=== PATIENT | female | born 1970 | race Caucasian/White ===

== ENCOUNTER 2017-03-12 15:28 | Outpatient (CLI) | payer MEDICARE, OTHER | END 2017-03-12 15:29 | disposition critical access hospital (66) | LOC: EMS 15:28 | PROVIDERS: ATTEND Surgery | DX: R55 Syncope and collapse (principal) | CPT/HCPCS: A0425; A0429 ==

== ENCOUNTER 2017-03-12 16:04 | Inpatient (IN) | payer MEDICARE, OTHER ==
--- NOTE | 2017-03-12 16:45 | ED Physician Documentation ---
History of Present Illness - Stated complaint Stated Complaint: ALOC - Chief complaint Chief Complaint: Neuro - Additonal information Additional information: hx from pt EMS and EMR 46 female s/p gastric bypass with resultant Wernicke encephalopathy and hypokalemia also chronic back pain takes morphine BIBA with CC AMS for several days, possible head injury (judging by bruise on her forehead) pt states she has also had a fever and a cough denies abd pain NVD s/p hyst pt denies recent med changes, denies illicit drug use, denies EtOH MOP arrives and states no morphine is missing and also reports pt was having ataxia and l eye gaze deviation which are typical of her wernickes Review of Systems Constitutional: reports: Fever Ears: denies: Ear pain Throat: denies: Sore throat Cardiac: denies: Chest pain / pressure Respiratory: reports: Cough GI: denies: Abdominal Pain, Nausea, Vomiting, Diarrhea Musculoskeletal: reports: Neck pain, Back pain (chronic) Neurologic: reports: Altered mental status, Headache, Head injury Endocrine: denies: Easy bruising / bleeding Immunocompromised: denies: Immunocompromised PD PAST MEDICAL HISTORY - Past Medical History Cardiovascular: None Respiratory: None Endocrine/Autoimmune: None GI: GERD : None HEENT: None Psych: None Musculoskeletal: Chronic back pain, Other Derm: None - Past Surgical History Past Surgical History: Yes General: Gastric surgery, Splenectomy, Colonoscopy, EGD Ortho: Spine surgery, 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, 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 HEENT: Tonsil/Adenoidectomy - Present Medications Home Medications: Ambulatory Orders Medication Instructions Recorded Confirmed Hydrochlorothiazide 25 mg PO DAILY 12/31/14 03/12/17 Esomeprazole [NexIUM] 40 mg ORAL DAILY 02/08/15 03/12/17 Morphine Sulfate [Ms Contin] 120 mg ORAL BID 02/08/15 03/12/17 Bupropion HCl 100 mg PO BID 12/06/15 03/12/17 Fluoxetine HCl 20 mg PO DAILY 12/06/15 03/12/17 Levocetirizine Dihydrochloride 5 mg PO DAILY 12/06/15 03/12/17 [Xyzal] Estrogens, Conjugated [Premarin] 0.625 mg PO DAILY 04/24/16 03/12/17 Lubiprostone [Amitiza] 8 mcg PO BID 04/24/16 03/12/17 Baclofen 10 mg DAILY PRN 03/12/17 03/12/17 Cholecalciferol (Vitamin D3) 1 tab DAILY 03/12/17 03/12/17 [Vitamin D3] Cyanocobalamin [Vitamin B-12] 1 applic .EVERY 2 WEEKS 03/12/17 03/12/17 Gabapentin 300 mg BID 03/12/17 03/12/17 Loratadine [Claritin] 10 mg DAILY PRN 03/12/17 03/12/17 Menactra 0.5 ml .UNKNOWN 03/12/17 03/12/17 Ondansetron [Zofran Odt] 8 mg TID PRN 03/12/17 03/12/17 Potassium Chloride 10%Liquid 15 ml DAILY 03/12/17 Thiamine [Vitamin B-1] 1 tab DAILY 03/12/17 03/12/17 - Allergies Allergies/Adverse Reactions: Allergies Allergy/AdvReac Type Severity Reaction Status Date / Time doxycycline AdvReac Unknown Verified 03/12/17 16:54 duloxetine HCl * AdvReac Unknown Verified 03/12/17 16:54 [From Cymbalta] pregabalin [From Lyrica] AdvReac Unknown Verified 03/12/17 16:54 Sulfa (Sulfonamide AdvReac Unknown Verified 03/12/17 16:54 Antibiotics) - Social History Does the pt smoke?: Yes Smoking Status: Current every day smoker Does the pt drink ETOH?: No Does the pt have substance abuse?: No - Immunizations Immunizations are current?: Yes - POLST Patient has POLST: No PD ED PE NORMAL - Vitals Vital signs reviewed: Yes (afebrile, desats when falls asleep) - General General: Alert and oriented X 3 - HEENT HEENT: PERRL. No: Atraumatic (linear brusie in middle of forehead) - Neck Neck: Supple, no meningeal sign - Cardiac Cardiac: RRR - Respiratory Respiratory: No respiratory distress, Clear bilaterally - Abdomen Abdomen: Soft, Non tender - Derm Derm: Normal color - Extremities Extremities: No deformity - Neuro Neuro: Other (arousable but groggy, answers questions, says yes to almost everything, moves all ext, PERRL) Results - Vitals Vitals: Vital Signs - 24 hr 03/12/17 03/12/17 03/12/17 16:07 17:32 18:33 Temperature 36.6 C Heart Rate 74 82 84 Respiratory 16 18 12 Rate Blood Pressure 106/75 114/83 H 115/76 O2 Saturation 98 99 100 03/12/17 03/12/17 19:13 19:59 Temperature Heart Rate 73 88 Respiratory 16 12 Rate Blood Pressure 148/93 H 111/75 O2 Saturation 95 99 Oxygen O2 Source Room air - EKG (time done) 1633 Rate: Rate (enter#) Rhythm: NSR [place]: Normal Intervals: Normal [place] Ischemia: Normal ST segments, Q waves (III AVF) - Labs Labs: Laboratory Tests 03/12/17 03/12/17 03/12/17 16:42 16:42 16:42 WBC 9.2 RBC 4.40 Hgb 13.2 Hct 39.8 MCV 90.5 MCH 30.1 MCHC 33.2 RDW 14.1 Plt Count 251 MPV 8.6 Neut # 5.6 Lymph # 2.8 [place] # 0.7 Eos # 0.1 Baso # 0.0 Absolute Nucleated RBC 0.00 Nucleated RBCs 0.0 Sodium 140 Potassium 4.1 Chloride 102 Carbon Dioxide 31 Anion Gap 7.0 BUN 16 Creatinine 0.7 Estimated GFR (MDRD) 89 Glucose 96 Calcium 9.1 Total Bilirubin 0.2 AST 22 ALT 17 Alkaline Phosphatase 83 Total Protein 6.5 L Albumin 3.6 Globulin 2.9 Albumin/Globulin Ratio 1.2 Lipase 16 L TSH 0.50 Urine Color Urine Clarity Urine pH Ur Specific [place] Urine Protein Urine Glucose (UA) Urine Ketones Urine Occult Blood Urine Nitrite Urine Bilirubin Urine Urobilinogen Ur Leukocyte Esterase Ur Microscopic Review Urine Culture Comments Urine HCG, Qual Urine Opiates Screen Ur Oxycodone Screen Urine Methadone Screen Ur Propoxyphene Screen Ur Barbiturates Screen Ur Tricyclics Screen Ur Phencyclidine Scrn Ur Amphetamine Screen U Methamphetamines Scrn U Benzodiazepines Scrn Urine Cocaine Screen U Cannabinoids Screen Ethyl Alcohol < 5.0 03/12/17 03/12/17 17:25 17:25 WBC RBC Hgb Hct MCV MCH MCHC RDW Plt Count MPV Neut # Lymph # [place] # Eos # Baso # Absolute Nucleated RBC Nucleated RBCs Sodium Potassium Chloride Carbon Dioxide Anion Gap BUN Creatinine Estimated GFR (MDRD) Glucose Calcium Total Bilirubin AST ALT Alkaline Phosphatase Total Protein Albumin Globulin Albumin/Globulin Ratio Lipase TSH Urine Color YELLOW Urine Clarity CLEAR Urine pH 6.0 Ur Specific [place] 1.015 Urine Protein NEGATIVE Urine Glucose (UA) NEGATIVE Urine Ketones NEGATIVE Urine Occult Blood NEGATIVE Urine Nitrite NEGATIVE Urine Bilirubin NEGATIVE Urine Urobilinogen 0.2 (NORMAL) Ur Leukocyte Esterase NEGATIVE Ur Microscopic Review NOT INDICATED Urine Culture Comments NOT INDICATED Urine HCG, Qual NEGATIVE Urine Opiates Screen POSITIVE H Ur Oxycodone Screen NEGATIVE Urine Methadone Screen NEGATIVE Ur Propoxyphene Screen NEGATIVE Ur Barbiturates Screen NEGATIVE Ur Tricyclics Screen NEGATIVE Ur Phencyclidine Scrn NEGATIVE Ur Amphetamine Screen NEGATIVE U Methamphetamines Scrn NEGATIVE U Benzodiazepines Scrn POSITIVE H Urine Cocaine Screen NEGATIVE U Cannabinoids Screen NEGATIVE Ethyl Alcohol - Rads (name of study) CTH Radiology: Prelim report reviewed (acute, opacification L maxilalry sinus could be sinusitis) [facility] Radiology: See rad report (no fx or listhesis, prior fusion) PD MEDICAL DECISION MAKING - ED course ED course: CTH neg excedpt sinusits labs normal excep _ opiates (as expected) and benzo (not prescribed, but mother of patient has rx for valium so perhaps pt took that) pt did awken some and moan and speak after 0.4 mg narcan so this could be opiate induced but with preceding sx of ataxia and gaze deviation and known hx wernickes which can be fatal, feel pt should be admitted for IV thiamine (did try and order a thiamine level to help clarify etiology of AMS but that is a send out which will not help) will admit gave IV thiamine, initially 100 mg but per UpToDate 500 mg IV so added another 400 advised hospitalist of possiible sinusitis on CT and pt is asplenic Departure - Departure Disposition: 66 [facility] DC/Xfer Clinical Impression: Encephalopathy
[2017-03-12 16:55] LABS: BASOPHILS % (AUTO) 0.4 %; EOSINOPHILS # (AUTO) 0.1 10^3/uL (0.0-0.7); EOSINOPHILS % (AUTO) 0.7 %; HCT - HEMATOCRIT 39.8 % (37.0-47.0); HGB - HEMOGLOBIN 13.2 g/dL (12.0-16.0); LYMPHOCYTES # (AUTO) 2.8 10^3/uL (1.5-3.5); LYMPHOCYTES % (AUTO) 30.2 %; MEAN CORPUSCULAR HEMOGLOBIN 30.1 pg (27.0-31.0); MEAN CORPUSCULAR HGB CONC 33.2 g/dL (32.0-36.0); MEAN CORPUSCULAR VOLUME 90.5 fL (81.0-99.0); MEAN PLATELET VOLUME 8.6 fL (7.9-10.8); MONOCYTES # (AUTO) 0.7 10^3/uL (0.0-1.0); NEUTROPHILS # (AUTO) 5.6 10^3/uL (1.5-6.6); NEUTROPHILS % (AUTO) 60.7 %; RED CELL DISTRIBUTION WIDTH 14.1 % (12.0-15.0); UNCORRECTED WHITE BLOOD COUNT 9.2 x10^3/uL; WHITE BLOOD COUNT 9.2 x10^3/uL (4.8-10.8)
[2017-03-12 17:12] LABS: ALBUMIN/GLOBULIN RATIO 1.2 (1.0-2.2); BILIRUBIN,TOTAL 0.2 mg/dL (0.2-1.0); BUN - BLOOD UREA NITROGEN 16 mg/dL (6-20); CALCIUM 9.1 mg/dL (8.5-10.3); CARBON DIOXIDE - CO2 31 mmol/L (21-32); CHLORIDE 102 mmol/L (101-111); CREATININE 0.7 mg/dL (0.4-1.0); GFR - MDRD 89 (>89); GLUCOSE 96 mg/dL (70-100); LIPASE 16 U/L (22-51); POTASSIUM 4.1 mmol/L (3.5-5.0); SODIUM 140 mmol/L (135-145); TOTAL PROTEIN 6.5 g/dL (6.7-8.2)
--- NOTE | 2017-03-12 17:30 | XRAY Preliminary Report ---
Exam: XR Chest 1 View IMPRESSION: No focal consolidation. [facility] SITE ID: [id number]
--- NOTE | 2017-03-12 17:33 | XRAY Report ---
EXAM: CHEST RADIOGRAPHY EXAM DATE: 03/12/2017 05:25 PM. CLINICAL HISTORY: Cough AMS. COMPARISON: Chest radiograph dated 12/06/2015. TECHNIQUE: 1 view. FINDINGS: Lungs/Pleura: No focal opacities evident. No pleural effusion. No pneumothorax. Mediastinum: Within exam limitations, cardiomediastinal contour is normal. Other: None. IMPRESSION: No focal consolidation. [facility] Referring Provider Line: [phone] SITE ID: [id number]
[2017-03-12 17:53] LABS: BILIRUBIN,URINE NEGATIVE (NEGATIVE)
[2017-03-12 17:55] LABS: HCG UR QUAL NEGATIVE; UA CHARGE (STRIP ONLY) YES; UR CULTURE IF IND NOT INDICATED
--- NOTE | 2017-03-12 18:00 | CT Preliminary Report ---
Exam: CT Head W/O IMPRESSION: 1. No acute intracranial abnormality. 2. Near complete opacification of the partially visualized left maxillary sinus which can be seen in the setting of acute sinusitis. [facility] SITE ID: [id number]
--- NOTE | 2017-03-12 18:03 | CT Report ---
EXAM: CT HEAD EXAM DATE: 03/12/2017 05:15 PM. CLINICAL HISTORY: HI AMS. COMPARISON: None. TECHNIQUE: Multiaxial CT images were obtained from the foramen magnum to the vertex. IV contrast: Non e. Reformats: Coronal. In accordance with CT protocol optimization, one or more of the following dose reduction techniques w ere utilized for this exam: automated exposure control, adjustment of mA and/or KV based on patient s ize, or use of iterative reconstructive technique. FINDINGS: Parenchyma: No intraparenchymal hemorrhage. No evidence of mass, midline shift, or CT findings of inf arction. Aparicio-white differentiation is distinct. Extraaxial Spaces: Normal for age. No subdural or epidural collections identified. Ventricles: Normal in size and position. Sinuses: Near complete opacification of the partially visualized left maxillary sinus. Bones: No evidence of fracture or calvarial defect. Other: None. IMPRESSION: 1. No acute intracranial abnormality. 2. Near complete opacification of the partially visualized left maxillary sinus which can be seen in the setting of acute sinusitis. [facility] Referring Provider Line: [phone] SITE ID: [id number]
--- NOTE | 2017-03-12 18:06 | CT Preliminary Report ---
Exam: CT Cervical Spine W/O IMPRESSION: 1. No acute fracture or listhesis. 2. Anterior cervical fusion hardware at C4-C7 with no evidence of hardware failure or loosening. The alignment is similar to the prior cervical spine radiograph dated 12/06/2015. 3. Acute sinusitis in the left maxillary sinus. [facility] SITE ID: [id number]
--- NOTE | 2017-03-12 18:09 | CT Report ---
EXAM: CT CERVICAL SPINE WITHOUT CONTRAST DATE: 03/12/2017 05:15 PM HISTORY: Fall HI AM cant clear. COMPARISONS: Cervical spine radiograph dated 12/05/2016. TECHNIQUE: Thin-section axial images were acquired of the cervical spine without contrast. Post-proce ssing: Coronal and sagittal reformats. Other: None. In accordance with CT protocol optimization, one or more of the following dose reduction techniques w ere utilized for this exam: automated exposure control, adjustment of mA and/or KV based on patient s ize, or use of iterative reconstructive technique. FINDINGS: Alignment: Normal. No scoliosis or spondylolisthesis. Bones: No fracture or bone lesion. Interspace Levels/Facets: The patient is again noted be status post prior anterior cervical fusion at C4, C5, C6 and C7 with no evidence of hardware failure or loosening. Anterior displacement of the inferior aspect of the fusio n hardware is similar to the prior examination. There is bony fusion of the intervertebral disk space s. Musculature: Normal. No fatty atrophy. Other: Near complete opacification of the left maxillary sinuses with bubbly secretions and an air-fl uid level. IMPRESSION: 1. No acute fracture or listhesis. 2. Anterior cervical fusion hardware at C4-C7 with no evidence of hardware failure or loosening. The alignment is similar to the prior cervical spine radiograph dated 12/06/2015. 3. Acute sinusitis in the left maxillary sinus. [facility] Referring Provider Line: [phone] SITE ID: [id number]
[2017-03-12] MEDS ORDERED: NALOXONE 0.4 MG/ML VIAL IVP STA (18:35)
[2017-03-12] MEDS ORDERED: THIAMINE INJ 500 MG in SODIUM CHLORIDE 0.9% 50 ML IV STA (18:37)
[2017-03-12] MEDS ORDERED: NALOXONE 0.4 MG/ML VIAL ONE (18:37)
[2017-03-12] MEDS ORDERED: THIAMINE INJ 100 MG in SODIUM CHLORIDE 0.9% 50 ML IV STA (18:39)
[2017-03-12] MEDS ORDERED: ACETAMINOPHEN 1,000 MG/100 ML 100 ML IV STA (19:03)
[2017-03-12] MEDS ORDERED: ACETAMINOPHEN 1,000 MG/100 ML 100 ML IV ONE (19:05)
[2017-03-12] MEDS ORDERED: THIAMINE INJ 400 MG in SODIUM CHLORIDE 0.9% 50 ML IV STA (20:07)
[2017-03-12] MEDS ORDERED: THIAMINE 100 MG/1 ML 2 ML MDV ONE (20:10)
[2017-03-12] MEDS ORDERED: SODIUM CHLORIDE 0.9% 50 ML IV ONE (20:12)
[2017-03-12] MEDS ORDERED: SODIUM CHLORIDE FLUSH 0.9% 10 ML SYRINGE IVP PRN (20:16)
[2017-03-12 21:35] LABS: FOLATE 17.02 ng/mL (5.90 - >24.8)
[2017-03-12] MEDS ORDERED: CYANOCOBALAMIN 1,000 MCG/ML VIAL IM SCH (21:45)
[2017-03-12] MEDS ORDERED: THIAMINE INJ 500 MG in SODIUM CHLORIDE 0.9% 50 ML IV SCH (22:00)
[2017-03-12] MEDS: AMOX/CLAV 875 MG/125 MG TABLET PO SCH (22:18)
[2017-03-12] MEDS: buPROPion SR 100 MG TABLET PO SCH (22:19)
[2017-03-12] MEDS: SODIUM CHLORIDE FLUSH 0.9% 10 ML SYRINGE IVP SCH (22:20)
[2017-03-12] MEDS: SODIUM CHLORIDE 0.9% 1,000 ML IV SCH (22:22)
[2017-03-13] MEDS: BACLOFEN 10 MG TABLET PO PRN (01:00)
[2017-03-13] MEDS: GABAPENTIN 300 MG CAPSULE PO SCH ×2 (01:45→22:06)
[2017-03-13] MEDS ORDERED: THIAMINE INJ 500 MG in SODIUM CHLORIDE 0.9% 50 ML IV SCH (05:00)
[2017-03-13] MEDS: SODIUM CHLORIDE FLUSH 0.9% 10 ML SYRINGE IVP SCH ×3 (06:33→22:06)
--- NOTE | 2017-03-13 06:37 | HISTORY & PHYSICAL EXAMINATION ---
DATE OF ADMISSION: 03/12/2017 PRIMARY CARE PROVIDER: MARCO Aceves, [facility]. CHIEF COMPLAINT: Altered mental status, increased lethargy. HISTORY OF PRESENT ILLNESS: This is a 46-year-old female who has a complicated past medical history i ncluding gastric bypass surgery in 2000, history of spinal cervical and thoracic to lumbar spinal cathy ankur in 2011 done in [place]. She has a history of opiate abuse in the past. Currently living with mother. 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 She notes that over the past several days, she has been feeling a little bit more fatigued. She also felt like she was having significant head congestion, took some [id number] decongestants; does admit to chills but denies any fevers. Mother found her today significantly lethargic, difficult to a rouse while in a car. She actually hit her head on the side of the door and was brought into the [facility] room for further evaluation. Chest x-ray revealed no focal or acute abnormalities. CT of head revealed no acute intracranial abnor mality but near complete opacification of the partially visualized left maxillary sinus, which sugges ts acute sinusitis. White count was noted to be 9.2 with 5.6 polys. Urine revealed no acute abnormali ties. Urine tox screen was positive for opiates and benzodiazepines by history. The patient reportedl y is not on any benzodiazepines. Alcohol level is less than 5.0. Urine hCG is negative. TSH is normal at 0.50. Vitamin B12 is 578. Patient's mother notes that patient had similar presentation when she was getting Wernicke's secondar y to thiamine malabsorption, which was at least several years ago. Patient did respond to Narcan and is more awake currently. 1. Traumatic accident, age 13, leading to chronic pain of neck and back. 2. History of 2003 gastric bypass surgery done at [facility]. 3. History 2011 of spinal surgery done in [place]. 4. History of Wernicke's secondary to malabsorption syndrome. 5. History of GERD. 6. History of drug abuse in the past. 7. History of . 8. Status post hysterectomy. 9. History of splenectomy secondary to traumatic accident at age 13. 10. Chronic back pain. 11. Depression. 12. Anxiety. 13. History of a PICC line infection 4 years ago. Fungal infection. 14. Patient has a history of pernicious anemia and is followed by endless belt finisher/oncologist, Dr. Crenshaw, along with having a history of iron deficiency. MEDICATIONS UPON ADMISSION 1. Hydrochlorothiazide 25 mg p.o. daily. 2. Nexium 40 mg p.o. daily. 3. MS Contin 120 mg p.o. b.i.d. 4. Bupropion 100 mg p.o. b.i.d. 5. Fluoxetine 20 mg p.o. b.i.d. 6. Xyzal 5 mg p.o. daily. 7. Premarin 0.625 mg p.o. daily. 8. Amitiza 8 mcg p.o. b.i.d. 9. Baclofen 10 mg p.o. daily p.r.n. spasm. 10. Vitamin D3 at 1 tab p.o. daily. 11. Vitamin B12 IM every 2 weeks. 12. Gabapentin 300 mg p.o. b.i.d. 13. Claritin 10 mg p.o. daily p.r.n. 14. Ondansetron 8 mg p.o. t.i.d. p.r.n. nausea or vomiting. 15. KCl 10% liquid 15 mL p.o. daily. 16. Thiamine 1 tab p.o. daily. ALLERGIES 1. DOXYCYCLINE. 2. DULOXETINE. 3. LYRICA. 4. SULFA. SOCIAL HISTORY: Lives with mother over the past 2 years; prior to that she was living in [place]. SMOKIN/4 of a pack per day. ALCOHOL: Currently none. FAMILY MEDICAL HISTORY: No history of strokes or cardiovascular disease. REVIEW OF SYSTEMS: Intermittently has some nausea, vomiting, which is not unusual for her; does have chronic constipation also. All other review of systems are reviewed and are negative except as in HPI . PHYSICAL EXAMINATION VITAL SIGNS: Temperature is afebrile, heart rate is 88, blood pressure 111/75, respiratory rate 12, r oom air saturation 99%. CONSTITUTIONAL: Slightly lethargic but answers questions appropriately; a middle-aged female. HEENT: Head does have a superficial abrasion on the left forehead area. Eyes are somewhat constricted but do react to light bilaterally. EOMI. NECK: No adenopathy. CHEST: Clear to auscultation. COR: Regular rate and rhythm, S1, S2. ABDOMEN: Soft, nontender. Bowel sounds present. EXTREMITIES: Exam reveals no pedal edema. SKIN: No rashes. PSYCHIATRIC: Mood and affect appear appropriate. NEUROLOGIC: She is alert and oriented x3. Motor strength is intact bilaterally. Slightly drowsy and l ethargic but otherwise is appropriate. LABORATORY DATA: As above, also to include sodium 140, potassium 4.1, chloride 102, bicarbonate 31, B UN 16, creatinine 0.7, calculated GFR 89, glucose 96, calcium 9.1. Total bilirubin 0.2, AST 20, ALT 1 7, alkaline phosphatase 83, total protein 6.5, albumin 3.6, lipase 16. Vitamin B12 at 578. TSH 0.50. White count 9.2, hematocrit 39.8, MCV 90.5, platelets 251, neutrophils 9.6. ASSESSMENT AND PLAN 1. Acute encephalopathy, present on admission, unclear etiology. Did respond to Narcan and february just b e an opiate overdose. There does not appear to be any suicidal ideation at this point involved. Ирина ontiveros also ingested other medications, which cannot screen for, and did take benzodiazepines which are not on her current medication list. Go ahead and place in observation status and monitor. May be possibly related to Wernicke's, as she h as had it in the past secondary to poor absorption of thiamine. She was given a dose of IV thiamine i n the emergency room. We will go ahead and continue as noted and up to date thiamine 500 mg IV t.i.d. for 2 days, and then with titration dose down. It is not very practical getting a thiamine level, as it needs to be first morning blood draw, and she will have already gotten her IV thiamine and is a s end-out. 2. History of vitamin B12 deficiency, present on admission. Her B12 level was normal. Continue with r epletion, as she gets IM q.2 weeks, we will give her an extra dose today. 3. Chronic back and neck pain, present on admission. We will try to hold off on giving her some of he r medications due to possible overdose from these. We will monitor pain and treat appropriately as ne eded. 4. Acute maxillary sinusitis, present on admission. We will go ahead and treat with p.o. Augmentin b. i.d. We will monitor for any signs of fevers, chills. 5. Anxiety/depression, chronic, present on admission. Continue current medication regimen. 6. Deep venous thrombosis prophylaxis. We will go ahead and use SCDs. We will not put her on subcutan eous Lovenox, given recent head trauma, minor. 7. CODE STATUS: PATIENT IS FULL CODE. TIME SPENT: 60 minutes. JOB #: [id number] EXT JOB #:[id number]
--- NOTE | 2017-03-13 09:01 | PROVIDER PROGRESS NOTE ---
Assessment/Plan - Problem List (1) Encephalopathy Assessment/Plan: Present on admission presumed secondary to over use of narcotic pain medications.. Improved with Narcan. 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 PT is currently lethargic but will open her eyes and verbalize. Interaction today may be in part due to her willingness to participate, she will need to get up and mobilize today. Will continue Vit B1 replacement (2) Opiates and related narcotics causing adverse effect in therapeutic use Qualifiers: Encounter type: sequela Qualified Code(s): T40.605S - Adverse effect of unspecified narcotics, sequela Assessment/Plan: Pt presented with acute encephalopthy which appears to be related to an unintentional over use of her narcotic pain medications. Plan: Will hold narcotics and sedating medications. Continue to monitor (3) Sinusitis, acute maxillary Qualifiers: Recurrence: non-recurrent Qualified Code(s): J01.00 - Acute maxillary sinusitis, unspecified Assessment/Plan: Present on admission,. Currently treated with ABX. Plan: Continue antibiotic therapy. Will receive total of 10 days of Augmentin. (4) Anxiety and depression Assessment/Plan: Present on admission. Impacting ability to evaluate her encephalopathy accurately as she is not participating in evaluation today. Plan: Continue home medications. Encourage her to get out of bed today - Current Meds Current Meds: Current Medications Generic Name Dose Route Start Last Admin Trade Name Freq PRN Reason Stop Dose Admin Amoxicillin/Clavulanate Potassium 1 tab 03/12/17 21:00 03/12/17 22:18 Augmentin 875/125 PO 1 tab BID MARILIN Administration Baclofen 10 mg 03/12/17 22:36 03/13/17 01:00 Lioresal PO 10 mg DAILY PRN Administration Analgesia Bupropion HCl 100 mg 03/12/17 21:00 03/12/17 22:19 Wellbutrin Sr PO 100 mg BID MARILIN Administration Gabapentin 300 mg 03/13/17 01:19 03/13/17 01:45 Neurontin PO 300 mg QPM MARILIN Administration Sodium Chloride 1,000 mls @ 100 mls/hr 03/12/17 21:00 03/12/17 22:22 Normal Saline 0.9% IV 100 mls/hr .Q10H MARILIN Administration Sodium Chloride 10 ml 03/12/17 22:00 03/13/17 06:33 Normal Saline Flush 0.9% IVP 10 ml Q8HR MARILIN Administration - Lab Result Lab results reviewed: Yes Fish Bone Diagrams: 03/12/17 16:42 03/12/17 16:42 - Additional Planning Condition/Complexity: Stable Plan Discussed with:: Patient Time Spent: 15-30 minutes Subjective - Subjective Patient Reports: Other (PT will open eyes and give 1 word response but otherwisae not participating in visit) Nursing Reports: No Complaints Objective Vital Signs: Vital Signs - 24 hr 03/12/17 03/12/17 03/13/17 21:00 21:06 00:42 Temperature 36.9 C 36.9 C Heart Rate 73 Heart Rate [ 90 79 Brachial] Respiratory 12 16 18 Rate Blood Pressure 106/46 L Blood Pressure 103/71 [Left Brachial artery] Blood Pressure 91/56 L [Right Brachial artery] O2 Saturation 97 96 100 03/13/17 03/13/17 03/13/17 04:43 04:47 05:16 Temperature 37.2 C 37.3 C Heart Rate Heart Rate [ 63 60 59 L Brachial] Respiratory 18 16 Rate Blood Pressure Blood Pressure 180/88 H 154/95 H 153/97 H [Left Brachial artery] Blood Pressure [Right Brachial artery] O2 Saturation 94 94 03/13/17 07:58 Temperature Heart Rate Heart Rate [ 65 Brachial] Respiratory 16 Rate Blood Pressure Blood Pressure 164/85 H [Left Brachial artery] Blood Pressure [Right Brachial artery] O2 Saturation 94 Oxygen O2 Source Nasal cannula I&O (Last 24 Hrs): Intake and Output Totals x24h 03/11/17 03/12/17 03/13/17 23:59 23:59 23:59 Intake Total 118 894 Balance 118 894 General: Other (lethargic. Not acitively participating. Possible residual encephalopathy although I believe this is also related to her mental health and lack of motivation to participate.) HEENT: PERRLA, EOMI Neck: No JVD Cardiovascular: Regular rate, No murmurs Respiratory: Chest non-tender, No respiratory distress, Breath sounds nml Abdomen: Normal bowel sounds, Soft Extremities: No clubbing, No edema, Normal pulses - Results Results: Laboratory Results WBC 9.2 x10^3/uL (4.8-10.8) 03/12/17 16:42 RBC 4.40 10^6/uL (4.20-5.40) 03/12/17 16:42 Hgb 13.2 g/dL (12.0-16.0) 03/12/17 16:42 Hct 39.8 % (37.0-47.0) 03/12/17 16:42 MCV 90.5 fL (81.0-99.0) 03/12/17 16:42 MCH 30.1 pg (27.0-31.0) 03/12/17 16:42 MCHC 33.2 g/dL (32.0-36.0) 03/12/17 16:42 RDW 14.1 % (12.0-15.0) 03/12/17 16:42 Plt Count 251 10^3/uL (130-450) 03/12/17 16:42 MPV 8.6 fL (7.9-10.8) 03/12/17 16:42 Neut # 5.6 10^3/uL (1.5-6.6) 03/12/17 16:42 Lymph # 2.8 10^3/uL (1.5-3.5) 03/12/17 16:42 Duval # 0.7 10^3/uL (0.0-1.0) 03/12/17 16:42 Eos # 0.1 10^3/uL (0.0-0.7) 03/12/17 16:42 Baso # 0.0 10^3/uL (0.0-0.1) 03/12/17 16:42 Absolute Nucleated RBC 0.00 x10^3/uL 03/12/17 16:42 Nucleated RBCs 0.0 /100WBC 03/12/17 16:42 Sodium 140 mmol/L (135-145) 03/12/17 16:42 Potassium 4.1 mmol/L (3.5-5.0) 03/12/17 16:42 Chloride 102 mmol/L (101-111) 03/12/17 16:42 Carbon Dioxide 31 mmol/L (21-32) 03/12/17 16:42 Anion Gap 7.0 (6-13) 03/12/17 16:42 BUN 16 mg/dL (6-20) 03/12/17 16:42 Creatinine 0.7 mg/dL (0.4-1.0) 03/12/17 16:42 Estimated GFR (MDRD) 89 (>89) 03/12/17 16:42 Glucose 96 mg/dL (70-100) 03/12/17 16:42 Calcium 9.1 mg/dL (8.5-10.3) 03/12/17 16:42 Total Bilirubin 0.2 mg/dL (0.2-1.0) 03/12/17 16:42 AST 22 IU/L (10-42) 03/12/17 16:42 ALT 17 IU/L (10-60) 03/12/17 16:42 Alkaline Phosphatase 83 IU/L (42-121) 03/12/17 16:42 Total Protein 6.5 g/dL (6.7-8.2) L 03/12/17 16:42 Albumin 3.6 g/dL (3.2-5.5) 03/12/17 16:42 Globulin 2.9 g/dL (2.1-4.2) 03/12/17 16:42 Albumin/Globulin Ratio 1.2 (1.0-2.2) 03/12/17 16:42 Lipase 16 U/L (22-51) L 03/12/17 16:42 Vitamin B12 409 pg/mL (180-914) 03/12/17 16:42 Folate 17.02 ng/mL (5.90 - >24.8) 03/12/17 16:42 TSH 0.50 uIU/mL (0.34-5.60) 03/12/17 16:42 Urine Color YELLOW 03/12/17 17:25 Urine Clarity CLEAR (CLEAR) 03/12/17 17:25 Urine pH 6.0 PH (5.0-7.5) 03/12/17 17:25 Ur Specific [place] 1.015 (1.002-1.030) 03/12/17 17:25 Urine Protein NEGATIVE mg/dL (NEGATIVE) 03/12/17 17:25 Urine Glucose (UA) NEGATIVE mg/dL (NEGATIVE) 03/12/17 17:25 Urine Ketones NEGATIVE mg/dL (NEGATIVE) 03/12/17 17:25 Urine Occult Blood NEGATIVE (NEGATIVE) 03/12/17 17:25 Urine Nitrite NEGATIVE (NEGATIVE) 03/12/17 17:25 Urine Bilirubin NEGATIVE (NEGATIVE) 03/12/17 17:25 Urine Urobilinogen 0.2 (NORMAL) E.U./dL (NORMAL) 03/12/17 17:25 Ur Leukocyte Esterase NEGATIVE (NEGATIVE) 03/12/17 17:25 Ur Microscopic Review NOT INDICATED 03/12/17 17:25 Urine Culture Comments NOT INDICATED 03/12/17 17:25 Urine HCG, Qual NEGATIVE 03/12/17 17:25 Urine Opiates Screen POSITIVE (NEGATIVE) H 03/12/17 17:25 Ur Oxycodone Screen NEGATIVE (NEGATIVE) 03/12/17 17:25 Urine Methadone Screen NEGATIVE (NEGATIVE) 03/12/17 17:25 Ur Propoxyphene Screen NEGATIVE (NEGATIVE) 03/12/17 17:25 Ur Barbiturates Screen NEGATIVE (NEGATIVE) 03/12/17 17:25 Ur Tricyclics Screen NEGATIVE (NEGATIVE) 03/12/17 17:25 Ur Phencyclidine Scrn NEGATIVE (NEGATIVE) 03/12/17 17:25 Ur Amphetamine Screen NEGATIVE (NEGATIVE) 03/12/17 17:25 U Methamphetamines Scrn NEGATIVE (NEGATIVE) 03/12/17 17:25 U Benzodiazepines Scrn POSITIVE (NEGATIVE) H 03/12/17 17:25 Urine Cocaine Screen NEGATIVE (NEGATIVE) 03/12/17 17:25 U Cannabinoids Screen NEGATIVE (NEGATIVE) 03/12/17 17:25 Ethyl Alcohol < 5.0 mg/dL 03/12/17 16:42 - Procedures Procedures: Procedures REMOV INT FIX-RADIUS/ULN (01/04/15)
[2017-03-13] MEDS: SODIUM CHLORIDE 0.9% 1,000 ML IV SCH ×2 (09:19→15:01)
[2017-03-13] MEDS: AMOX/CLAV 875 MG/125 MG TABLET PO SCH ×2 (10:29→22:06)
[2017-03-13] MEDS: FLUoxetine 10 MG CAPSULE PO SCH (10:29)
[2017-03-13] MEDS: buPROPion SR 100 MG TABLET PO SCH ×2 (10:29→22:06)
[2017-03-13] MEDS: PRENATAL VITAMIN TABLET PO SCH (10:33)
[2017-03-13] MEDS: FOLIC ACID 1 MG TABLET PO SCH (10:33)
[2017-03-13] MEDS: PANTOPRAZOLE 40 MG TABLET PO SCH (10:33)
[2017-03-13] MEDS: POLYETHYLENE GLYCOL 3350 17 GM PACKET PO SCH (10:37)
[2017-03-13] MEDS: THIAMINE INJ 500 MG in SODIUM CHLORIDE 0.9% 50 ML IV SCH ×2 (10:42→18:17)
[2017-03-13] MEDS: ONDANSETRON 4 MG/2 ML VIAL IVP PRN ×2 (13:20→20:14)
[2017-03-13] MEDS: ACETAMINOPHEN 325 MG TABLET PO PRN ×3 (15:00→23:59)
[2017-03-13] MEDS ORDERED: GABAPENTIN 300 MG CAPSULE PO SCH (21:00)
[2017-03-14] MEDS: THIAMINE INJ 500 MG in SODIUM CHLORIDE 0.9% 50 ML IV SCH (02:40)
[2017-03-14] MEDS: BACLOFEN 10 MG TABLET PO PRN (03:35)
[2017-03-14] MEDS: ACETAMINOPHEN 325 MG TABLET PO PRN ×2 (03:35→07:43)
[2017-03-14] MEDS: SODIUM CHLORIDE 0.9% 1,000 ML IV SCH ×2 (05:17→05:35)
[2017-03-14] MEDS: SODIUM CHLORIDE FLUSH 0.9% 10 ML SYRINGE IVP SCH (05:35)
[2017-03-14] MEDS: ONDANSETRON 4 MG/2 ML VIAL IVP PRN (07:46)
[2017-03-14 08:17] VITALS: BP 116/74
[2017-03-14] MEDS: PRENATAL VITAMIN TABLET PO SCH (08:41)
[2017-03-14] MEDS: PANTOPRAZOLE 40 MG TABLET PO SCH (08:41)
[2017-03-14] MEDS: buPROPion SR 100 MG TABLET PO SCH (08:41)
[2017-03-14] MEDS: FOLIC ACID 1 MG TABLET PO SCH (08:41)
[2017-03-14] MEDS: AMOX/CLAV 875 MG/125 MG TABLET PO SCH (08:41)
[2017-03-14] MEDS: FLUoxetine 10 MG CAPSULE PO SCH (08:41)
[2017-03-14] MEDS: POLYETHYLENE GLYCOL 3350 17 GM PACKET PO SCH (09:19)
--- NOTE | 2017-03-14 11:39 | Discharge Plan ---
Discharge Plan Disposition: Home, Self Care Condition: Stable Prescriptions: Amox/Clav 875/125 [Augmentin 875/125] 1 tab PO BID #14 tablet Folic Acid 1 mg PO DAILY #30 tablet FLUoxetine [PROzac] 20 mg PO DAILY #30 capsule Thiamine [Vitamin B-1] 100 mg PO DAILY #30 tablet buPROPion [Wellbutrin Sr] 100 mg PO BID #60 tablet Diet: Regular Activity Restrictions: No Restrictions Weight Bearing: Full Weight No Smoking: If you smoke, Please STOP! Call for help. Follow-up with: Silvia Aceves PA-C [Provider Admit Priv/Credential] - 1 Week
--- NOTE | 2017-03-14 14:48 | DISCHARGE SUMMARY ---
DATE OF ADMISSION: 03/12/2017 DATE OF DISCHARGE: 03/14/2017 DISCHARGING PROVIDER: Luis Gaxiola PA-C. PRIMARY CARE PROVIDER: Silvia Aceves PA-C, at the [facility]. ADMITTING DIAGNOSES 1. Acute encephalopathy. 2. History of vitamin B12 deficiency. 3. Chronic back and neck pain, present on admission. 4. Acute maxillary sinusitis, present on admission. 5. Anxiety, depression. DISCHARGE DIAGNOSES 1. Acute encephalopathy. a. Suspect secondary to opioid overdose, as she improved with Narcan with no recurrence with the c essation of opioids during hospitalization. b. Additional complication with benzodiazepines, which is not on her current medication list. The patient denies taking, but was on her urine drug screen. c. Possible thiamine deficiency, status post replacement. 2. Vitamin B12 deficiency, maintained on current medication. 3. Chronic back and neck pain. No severe pain despite holding her medications during hospitalization, although she did report a 6/10 pain the morning of discharge without significant pain response and c ontrolled blood pressure and heart rate. 4. Acute maxillary sinusitis. a. Treated with Augmentin. b. Discharged with Augmentin for 7 additional days. 5. Anxiety and depression, chronic, present on admission, and continued on Paxil and Wellbutrin. BRIEF HISTORY OF PRESENT ILLNESS: For specifics, please see on admission. This is a 46-year-old femal e who had been feeling fatigued with congestion and chills with no fever, found by her mother to be l ethargic and difficult to arouse. She had hit her head on the side of the car door. COURSE IN CENTER: The patient initially evaluated in the emergency department. Chest x-ray with no fo uday abnormality. CT of the head with no acute intracranial abnormalities, but evidence of maxillary s inusitis due to complete opacification of the partially visualized left maxillary sinus. White blood cell count 9.2. Urine tox screen was positive for opioids and benzodiazepine. The patient was treated with Narcan and cleared significantly. The patient was admitted for further management. On the initi al morning after admission, the patient was still lethargic and not responding to questions in full s entences. This slowly improved throughout the day and by the end of the day she was more interactive. On the day of discharge, the patient was sitting comfortably in her bed, talking on the phone when i nitially evaluated and continued to remain stable. She did have a headache reported and asked for Exc edrin, which she takes at home, and we were able to accommodate. At time of discharge, the patient wa s doing well in a stable condition with no further evidence of encephalopathy. RADIOLOGY STUDIES Head CT, no acute intracranial abnormalities. Near complete opacification of the partially visualized left maxillary sinus, which could be seen in setting of acute sinusitis. Chest x-ray: No focal consolidations, no acute findings. Negative for pleural effusions or pneumothor ax. Cervical spine CT, no acute fractures. Anterior cervical fusion hardware at C4 through C7 with no evidence of hardware failure or loosening. Alignment similar to previous study on 12/06/2015. Acute sinusitis was again visualized. LABORATORY TESTING: Sodium 140, potassium 4.1, chloride 102, carbon dioxide 31, BUN 16, creatinine 0. 7, glucose 96, total bilirubin 0.2, calcium 9.1, AST 22, ALT 17, alkaline phosphatase 83, total prote in 6.5, albumin 3.6, globulin 2.9, lipase 16. B12 409, folate 17.02, TSH of 0.50. WBC 9.5, hemoglobin 13.2, hematocrit 39.8, platelet 251. PHYSICAL EXAMINATION AT DISCHARGE GENERAL: Chronically ill-appearing, older than stated age, in no acute distress. CHEST: Clear to auscultation. HEART: Regular rate and rhythm without murmurs, rubs, or gallops. ABDOMEN: Benign. EXTREMITIES: Without edema, deformity, discolorations, or ulcerations. NEUROLOGICAL: Cranial nerves 2 through 12 grossly intact. FOLLOWUP: Followup appointment with primary care provider, Silvia Aceves PA-C, in 1-2 weeks. ACTIVITIES: Increase activity level as tolerated. MEDICATIONS ON DISCHARGE 1. Augmentin 875/125 one tablet b.i.d. for 14 days. 2. Folic acid 1 mg daily. 3. Prozac 20 mg daily. 4. Thiamine 100 mg daily. 5. Wellbutrin-SR 100 mg b.i.d. 6. Advised the patient to decrease her long-acting morphine if she continues to take this. She should take 60 mg b.i.d. as opposed to 120 mg b.i.d. 7. Unclear where the patient received her benzodiazepine, but recommend she not take these medication s and discuss them with her primary care provider. TIME SPENT ON DISCHARGE: Greater than 30 minutes including time spent in counseling with the patient. Thank you for the opportunity to participate in the care of the patient and all of her medical needs. JOB #: [id number] EXT JOB #:[id number]
[2017-03-15] MEDS ORDERED: THIAMINE 100 MG TABLET PO SCH (09:00)
== END 2017-03-14 13:39 | disposition home or self-care (01) | DRG 917 ==
LOC: EDUNIT# → ED 16:04 → INTOOBSV 20:16 → OBSVTOIN 20:16 → MS 20:16 → OBSVTOIN 03-13 10:23 → MS 03-13 13:10 → UNDODISIN 03-14 13:39
PROVIDERS: ADMIT Specialist; ATTEND Physician Assistant
DX: T40.2X1A Poisoning by other opioids, accidental (unintentional), initial encounter (principal); G93.40 Encephalopathy, unspecified; D51.0 Vitamin B12 deficiency anemia due to intrinsic factor deficiency; G92 Toxic encephalopathy; E51.9 Thiamine deficiency, unspecified; Z79.891 Long term (current) use of opiate analgesic; T42.4X1A Poisoning by benzodiazepines, accidental (unintentional), initial encounter; E53.8 Deficiency of other specified B group vitamins; M54.9 Dorsalgia, unspecified; S00.81XA Abrasion of other part of head, initial encounter; W22.8XXA Striking against or struck by other objects, initial encounter; K21.9 Gastro-esophageal reflux disease without esophagitis; F17.210 Nicotine dependence, cigarettes, uncomplicated; Z98.84 Bariatric surgery status; Z90.81 Acquired absence of spleen; Z90.710 Acquired absence of both cervix and uterus; M54.2 Cervicalgia; Z87.898 Personal history of other specified conditions; Z79.818 Long term (current) use of other agents affecting estrogen receptors and estrogen levels; G89.29 Other chronic pain; J01.00 Acute maxillary sinusitis, unspecified; F32.9 Major depressive disorder, single episode, unspecified; F41.9 Anxiety disorder, unspecified; Z98.1 Arthrodesis status
CPT/HCPCS: 36415; 51701; 70450; 71010; 72125; 80053; 80306; 80320; 81001; 81003; 81025; 82607; 82746; 83690; 84425; 84443; 85025; 87086; 93005; 93010; 96372; 96374; 96375; 96376; 99284; 99285

== ENCOUNTER 2017-05-20 14:46 | Outpatient (CLI) | payer MEDICARE, OTHER ==
[2017-05-20 18:47] LABS: BASOPHILS % (AUTO) 0.3 %; EOSINOPHILS # (AUTO) 0.1 10^3/uL (0.0-0.7); EOSINOPHILS % (AUTO) 1.3 %; HCT - HEMATOCRIT 40.7 % (37.0-47.0); HGB - HEMOGLOBIN 13.5 g/dL (12.0-16.0); LYMPHOCYTES # (AUTO) 3.7 10^3/uL (1.5-3.5); LYMPHOCYTES % (AUTO) 46.2 %; MEAN CORPUSCULAR HEMOGLOBIN 30.5 pg (27.0-31.0); MEAN CORPUSCULAR HGB CONC 33.2 g/dL (32.0-36.0); MEAN CORPUSCULAR VOLUME 91.6 fL (81.0-99.0); MONOCYTES # (AUTO) 0.9 10^3/uL (0.0-1.0); MONOCYTES % (AUTO) 10.5 %; NEUTROPHILS # (AUTO) 3.4 10^3/uL (1.5-6.6); NEUTROPHILS % (AUTO) 41.7 %; NUCLEATED RED BLOOD CELLS AUTO 0.1 /100WBC; RED BLOOD COUNT 4.44 10^6/uL (4.20-5.40); RED CELL DISTRIBUTION WIDTH 14.7 % (12.0-15.0); UNCORRECTED WHITE BLOOD COUNT 8.1 x10^3/uL; WHITE BLOOD COUNT 8.1 x10^3/uL (4.8-10.8)
[2017-05-20 19:32] LABS: IRON 35 ug/dL (28-170); TOTAL IRON BINDING CAPACITY 307 ug/dL (250-450); TRANSFERRIN 219 mg/dL (192-382)
== END 2017-05-20 14:47 | disposition home or self-care (01) ==
LOC: LAB.F 14:46
PROVIDERS: ATTEND Physician Assistant Medical
DX: D64.9 Anemia, unspecified (principal)
CPT/HCPCS: 36415; 82728; 83540; 84466; 85025

== ENCOUNTER 2017-06-05 10:40 | Emergency (ER) | payer MEDICARE, OTHER ==
[2017-06-05] MEDS ORDERED: IBUPROFEN 400 MG TABLET PO STA (11:13)
[2017-06-05] MEDS ORDERED: IBUPROFEN 800 MG TABLET PO ONE (11:23)
--- NOTE | 2017-06-05 11:56 | XRAY Preliminary Report ---
Exam: XR Foot 3 View RT IMPRESSION: 1. Transverse fractures of the proximal right second, third and fourth metatarsal metaphyses. 2. Oblique right second metatarsal neck fracture with 3 mm displacement. 3. Tarsometatarsal joints appear normally aligned. 4. Consider CT to further assess tarsometatarsal region and exclude additional injury. [facility] SITE ID: [id number]
--- NOTE | 2017-06-05 11:58 | XRAY Report ---
EXAM: RIGHT FOOT RADIOGRAPHY EXAM DATE: 06/05/2017 11:32 AM. CLINICAL HISTORY: Injury. Fell getting out of bed this morning. COMPARISON: None. TECHNIQUE: 3 views. FINDINGS: Bones: Transverse fractures of the proximal right second, third and fourth metatarsal metaphyses. Oblique right second metatarsal neck fracture with 3 mm displacement. Joints: Normal. No subluxations. Soft Tissues: Normal. No soft tissue swelling. IMPRESSION: 1. Transverse fractures of the proximal right second, third and fourth metatarsal metaphyses. 2. Oblique right second metatarsal neck fracture with 3 mm displacement. 3. Tarsometatarsal joints appear normally aligned. 4. Consider CT to further assess tarsometatarsal region and exclude additional injury. [facility] Referring Provider Line: [phone] SITE ID: [id number]
--- NOTE | 2017-06-05 13:09 | ED Physician Documentation ---
History of Present Illness - Stated complaint Stated Complaint: R FOOT INJ - Chief complaint Chief Complaint: Ext Problem - Additonal information Additional information: hx from pt 46 female last night twisted foot anteriorly and had severe pain so bad she could not get up off the floor again until family helped her this AM no other injuries Review of Systems Musculoskeletal: reports: Pain with weight bearing PD PAST MEDICAL HISTORY - Past Medical History Past Medical History: Yes Cardiovascular: None Respiratory: None Neuro: Headache/migraine, Head injury Endocrine/Autoimmune: None GI: Chronic constipation : Frequency, Kidney stones HEENT: None Psych: Depression, Anxiety, Panic attacks, Post traumatic stress disorder, Claustrophobia Musculoskeletal: Fibromyalgia, Chronic back pain Derm: None - Past Surgical History Past Surgical History: Yes General: Gastric surgery, Splenectomy, Colonoscopy, EGD Ortho: Spine surgery, Other /[employer]: section, 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 HEENT: Tonsil/Adenoidectomy - Present Medications Home Medications: Ambulatory Orders Medication Instructions Recorded Confirmed Gabapentin 300 mg BID 03/12/17 06/05/17 Baclofen 10 mg PO DAILY 03/13/17 06/05/17 Acetaminophen [Tylenol] 650 mg PO Q4HR PRN #0 tablet 03/14/17 06/05/17 Folic Acid 1 mg PO DAILY #30 tablet 03/14/17 06/05/17 Vitamin [Trinatal Rx 1] 1 tab PO DAILYWM tablet 03/14/17 06/05/17 Thiamine [Vitamin B-1] 100 mg PO DAILY #30 tablet 03/14/17 06/05/17 buPROPion [Wellbutrin Sr] 100 mg PO BID #60 tablet 03/14/17 06/05/17 Estrogens, Conjugated [Premarin] 0.625 mg PO DAILY 06/05/17 06/05/17 FLUoxetine [PROzac] 60 mg PO DAILY 06/05/17 06/05/17 Hydrochlorothiazide 25 mg PO DAILY 06/05/17 06/05/17 Ibuprofen [Motrin] 400 - 800 mg PO Q8H PRN #30 tablet 06/05/17 Morphine Sulfate [Ms Contin] 120 mg ORAL BID 06/05/17 06/05/17 Trazodone HCl 50 mg PO DAILY 06/05/17 06/05/17 - Allergies Allergies/Adverse Reactions: Allergies Allergy/AdvReac Type Severity Reaction Status Date / Time doxycycline AdvReac Unknown Verified 03/12/17 16:54 duloxetine HCl * AdvReac Unknown Verified 03/12/17 16:54 [From Cymbalta] pregabalin [From Lyrica] AdvReac Unknown Verified 03/12/17 16:54 Sulfa (Sulfonamide AdvReac Unknown Verified 03/12/17 16:54 Antibiotics) - Social History Does the pt smoke?: Yes Smoking Status: Current every day smoker Does the pt drink ETOH?: No Does the pt have substance abuse?: No - Immunizations Immunizations are current?: Yes - POLST Patient has POLST: No PD ED PE NORMAL - Vitals Vital signs reviewed: Yes - Extremities Extremities: Other (R foot: marled edema, sig TTP mid foot, also tender plantatr aspect, MSV intact, no lac) Results - Vitals Vitals: Vital Signs - 24 hr 06/05/17 06/05/17 10:45 13:58 Temperature 36.6 C Heart Rate 79 70 Respiratory 18 16 Rate Blood Pressure 111/75 112/68 O2 Saturation 100 Oxygen O2 Source Room air - Rads (name of study) foot Radiology: See rad report (transverse fx proximal right 2nd 3rd 4th MT metaphysis, oblique right 2nd MT neck fx 2 mm displacement, tarso metatarsal jts aligned, consider cT (defer to ortho outpt)) Procedures - Splint (location) RLE Splint applied by: Tech Type of splint: Fiberglass, Short leg, Posterior Other: Patient tolerated well, No complications, Neurovascular intact, Other ( knee scooter) Departure - Departure Disposition: 01 Home, Self Care Clinical Impression: Foot fracture, right Qualifiers: Encounter type: initial encounter Fracture type: closed Qualified Code(s): S92.901A - Unspecified fracture of right foot, initial encounter for closed fracture Condition: Good Instructions: ED Fx Foot, ED Splint Care Fiberglass Follow-Up: Stiven Ferguson MD [Provider Admit Priv/Credential] - Prescriptions: Ibuprofen [Motrin] 400 - 800 mg PO Q8H PRN #30 tablet PRN Reason: Pain Comments: The xray shows numerous foot fractures and a possible ligamentous injury as well Wear the splint and use the knee scooter - no weight bearing at all Follow up with Dr Ferguson orthopedics - he may want to get a MRI or CT as well. Take motrin 800 mg with meals in addition to your morphine Return if worse Discharge Date/Time: 06/05/17 13:52
[2017-06-05 13:58] VITALS: BP 112/68
== END 2017-06-05 13:52 | disposition home or self-care (01) ==
LOC: ED 10:40
DX: S92.321A Displaced fracture of second metatarsal bone, right foot, initial encounter for closed fracture (principal); S92.331A Displaced fracture of third metatarsal bone, right foot, initial encounter for closed fracture; S92.341A Displaced fracture of fourth metatarsal bone, right foot, initial encounter for closed fracture; X50.0XXA Overexertion from strenuous movement or load, initial encounter; M79.7 Fibromyalgia; Z87.442 Personal history of urinary calculi; F17.200 Nicotine dependence, unspecified, uncomplicated; Z98.84 Bariatric surgery status
CPT/HCPCS: 29515; 73630; 99283; A9270

== ENCOUNTER 2017-07-29 14:43 | Outpatient (CLI) | payer MEDICARE, OTHER ==
--- NOTE | 2017-07-30 18:33 | Mammography Report ---
DIGITAL BILATERAL SCREENING MAMMOGRAM: 07/29/2017 COMPARISON STUDY: Mammogram 07/09/2016. TECHNIQUE: Bilateral MLO and CC breast views. FINDINGS: The breast parenchyma is heterogeneously dense which may limit the sensitivity of mammogra phy. No mass, architectural distortion, or concerning cluster of microcalcifications are seen. IMPRESSION: 1. BIRADS CATEGORY: 1, NEGATIVE. 2. RECOMMEND ANNUAL SCREENING MAMMOGRAM. STANDARD QUALIFYING STATEMENTS 1. This examination was reviewed with the aid of Computed-Aided Detection (CAD). 2. A negative or benign imaging report should not delay biopsy if clinically suspicious findings are present. Consider surgical consultation if warranted. More than 5% of cancers are not identified b y imaging. 3. Dense breasts may obscure an underlying neoplasm. JOB #: [id number] EXT JOB #:[id number]
== END 2017-07-29 14:44 | disposition home or self-care (01) ==
LOC: DI.S 14:43
PROVIDERS: ATTEND Physician Assistant Medical
DX: Z12.31 Encounter for screening mammogram for malignant neoplasm of breast (principal)
CPT/HCPCS: 77067

== ENCOUNTER 2017-08-14 10:09 | Outpatient (CLI) | payer MEDICARE, OTHER | END 2017-08-14 10:10 | disposition EMS.NT | LOC: EMS 10:09 | PROVIDERS: ATTEND Surgery | DX: R40.0 Somnolence (principal) ==

== ENCOUNTER 2017-10-26 14:00 | Outpatient (CLI) | payer MEDICARE, OTHER ==
[~2017-10-26 14:00] MED LIST: GADOBUTROL 7.5 MMOL/7.5 ML VIAL ONE
[2017-10-26] MEDS ORDERED: GADOBUTROL 7.5 MMOL/7.5 ML VIAL IVP ONE (15:28)
--- NOTE | 2017-10-26 22:44 | MRI Report ---
EXAM: MRI BRAIN WITHOUT AND WITH CONTRAST EXAM DATE: 10/26/2017 03:43 PM. CLINICAL HISTORY: Visual changes, slurred speech, imbalance. COMPARISON: Brain CT from 12/10/2015. TECHNIQUE: Multiplanar, multisequence T1-weighted and fluid-sensitive MR sequences of the brain were performed. Sequences optimized for routine evaluation. Other: None. IV Contrast: 5 mL of Gadavist. FINDINGS: Brain Volume: Normal for age. Parenchyma: No acute hemorrhage, mass, or infarct. No white matter lesions identified. No abnormal en hancement. Ventricles/Cisterns: No hydrocephalus. No abnormal extra-axial fluid collection or hemorrhage. Orbits: Symmetric and unremarkable. Sella Turcica: The pituitary gland, cavernous sinuses, suprasellar cistern and optic chiasm are unrem arkable. IAC: Symmetric and unremarkable. Vasculature: Normal signal flow void is seen in the major arterial structures at the skull base. The dural sinuses are patent and enhance normally. Sinuses: Trace mucosal thickening is noted in the left maxillary sinus. The mastoid sinuses are not o pacified. Bones: No focal pathologic appearing marrow signal changes. IMPRESSION: Normal contrast enhanced brain MRI. [facility] Referring Provider Line: [phone] SITE ID: [id number]
== END 2017-10-26 14:01 | disposition home or self-care (01) ==
LOC: DI 14:00
PROVIDERS: ATTEND Physician Assistant Medical
DX: R41.3 Other amnesia (principal); R27.9 Unspecified lack of coordination
CPT/HCPCS: 70553; A9585

== ENCOUNTER 2018-02-14 12:56 | Outpatient (CLI) | payer MEDICARE, OTHER | END 2018-02-14 12:57 | disposition home or self-care (01) | LOC: LAB.F 12:56 | PROVIDERS: ATTEND Physician Assistant Medical | DX: E03.9 Hypothyroidism, unspecified (principal) | CPT/HCPCS: 36415; 84443 ==

== ENCOUNTER 2018-04-04 15:08 | Outpatient (CLI) | payer MEDICARE, OTHER ==
--- NOTE | 2018-04-04 20:16 | MRI Report ---
Procedure Date: 04/04/2018 Accession Number: [id number] / [id number] Procedure: MRI - Shoulder RT W/O CPT Code: FULL RESULT: EXAM: RIGHT SHOULDER MRI WITHOUT CONTRAST EXAM DATE: 04/04/2018 03:13 PM. CLINICAL HISTORY: RT SHOULDER PAIN. COMPARISON: None. TECHNIQUE: Multiplanar, multisequence T1-weighted and fluid-sensitive sequences of the shoulder without contrast. Other: Motion artifact.. FINDINGS: Acromioclavicular Region: The acromion is type II unipartite. AC joint is moderately osteoarthritic. The coracoacromial and coracoclavicular ligaments are intact. Moderate amount of bursal fluid. Glenohumeral Region: No subluxation. No effusion or loose bodies. The articular cartilage is unremarkable. The glenohumeral ligaments and joint capsule are unremarkable. Bone Marrow: There is a small amount of increased T2 signal in the superior lateral aspect of the humerus. No fracture lines. Labrum: The labrum is unremarkable on this nonarthrographic study. Musculature/Rotator Cuff: Subscapularis, supraspinatus and infraspinatus tendons are quite thickened and shows some increased T2 signal without focal full-thickness fluid-filled gap. Teres minor is normal. No proximal muscular edema or fatty atrophy. Biceps Tendon: The long head of the biceps tendon and biceps madisyn are intact. Other: The subcutaneous tissues are unremarkable. IMPRESSION: 1. Type II unipartite undersurface osseous acromion shape. AC joint is moderately osteoarthritic and there is a moderate amount of bursal fluid. 2. Moderate to severe tendinitis involves the subscapularis, supraspinatus and infraspinatus portions of the rotator cuff. No partial or full-thickness tears are seen. 3. Labrum, capsular structures, long head of biceps appear unremarkable. 4. Small amount of marrow edema in the superolateral aspect of the humerus which may be secondary to a direct blow. No fractures. [facility] MUSCULOSKELETAL RADIOLOGY SECTION
== END 2018-04-04 15:09 | disposition home or self-care (01) ==
LOC: DI 15:08
PROVIDERS: ATTEND Orthopaedic Surgery
DX: M19.011 Primary osteoarthritis, right shoulder (principal); M75.81 Other shoulder lesions, right shoulder

== ENCOUNTER 2018-04-13 07:47 | Emergency (ER) | payer MEDICARE, OTHER ==
[2018-04-13 08:03] VITALS: BP 114/87
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
[2018-04-13] MEDS ORDERED: ACETAMINOPHEN 325 MG TABLET PO STA (09:42)
[2018-04-13] MEDS ORDERED: IBUPROFEN 600 MG TABLET PO STA (09:42)
--- NOTE | 2018-04-13 10:22 | XRAY Report ---
Procedure Date: 04/13/2018 Accession Number: [id number] / [id number] Procedure: XR - Ankle 3 View RT CPT Code: FULL RESULT: EXAM: RIGHT ANKLE RADIOGRAPHY EXAM DATE: 04/13/2018 10:00 AM. CLINICAL HISTORY: Injury/pain. Heavy object struck ankle yesterday. COMPARISON: Left ankle today, right foot 06/05/2017. TECHNIQUE: 3 views. FINDINGS: Bones: Normal. No fractures or bone lesions. Joints: Normal. No effusion. No subluxations. The ankle mortise is normally aligned. Soft Tissues: Normal. No soft tissue swelling. IMPRESSION: Normal right ankle radiography. RADIA
--- NOTE | 2018-04-13 10:23 | XRAY Report ---
Procedure Date: 04/13/2018 Accession Number: [id number] / [id number] Procedure: XR - Ankle 3 View LT CPT Code: FULL RESULT: EXAM: LEFT ANKLE RADIOGRAPHY EXAM DATE: 04/13/2018 10:01 AM. CLINICAL HISTORY: Object dropped on ankle/foot. COMPARISON: Right ankle today. TECHNIQUE: 3 views. FINDINGS: Bones: Normal. No fractures or bone lesions. Joints: Normal. No effusion. No subluxations. The ankle mortise is normally aligned. Soft Tissues: Normal. No soft tissue swelling. IMPRESSION: Normal left ankle radiography. RADIA
== END 2018-04-13 10:52 | disposition home or self-care (01) ==
LOC: ED 07:47
DX: S90.02XA Contusion of left ankle, initial encounter (principal); S90.01XA Contusion of right ankle, initial encounter; W22.8XXA Striking against or struck by other objects, initial encounter; Y99.0 Civilian activity done for income or pay; F17.200 Nicotine dependence, unspecified, uncomplicated
CPT/HCPCS: 73610; 99282; 99283; A9270

== ENCOUNTER 2018-08-06 11:59 | Outpatient (CLI) | payer MEDICARE, OTHER ==
--- NOTE | 2018-08-07 10:10 | Mammography Report ---
Reason: SCREENING MAMMO Procedure Date: 08/06/2018 Accession Number: [id number] / [id number] Procedure: MGS - Screening Mammo Dig Bilat CPT Code: FULL RESULT: EXAM: Screening Mammo Dig Bilat DATE: 08/06/2018 12:26 PM CLINICAL HISTORY: [id number] female with history of early menses and 22 years of hormone therapy. TECHNIQUE: Bilateral CC, laterally exaggerated CC, MLO views were obtained. COMPARISON: 07/29/2017, 07/09/2016. FINDINGS: The breasts demonstrate heterogeneously dense fibroglandular parenchyma bilaterally. No suspicious masses, clustered microcalcifications, or regions of architectural distortion are identified. IMPRESSION: Negative examination RECOMMENDATION: Routine annual screening unless otherwise clinically indicated. BIRADS CATEGORY 1: Negative STANDARD QUALIFYING STATEMENTS: 1. This examination was reviewed with the aid of Computer-Aided Detection (CAD). 2. A negative or benign imaging report should not delay biopsy if clinically suspicious findings are present. Consider surgical consultation if warrented. More than 5% of cancers are not identified by imaging. 3. Dense breasts may obscure an underlying neoplasm. 4. This examination was reviewed without the aid of 3D breast imaging (tomosynthesis).
== END 2018-08-06 12:00 | disposition home or self-care (01) ==
LOC: DI.S 11:59
DX: Z12.31 Encounter for screening mammogram for malignant neoplasm of breast (principal)
CPT/HCPCS: 77067

== ENCOUNTER 2019-03-18 08:00 | Outpatient (CLI) | payer MEDICARE, OTHER ==
[2019-03-18 17:45] LABS: BASOPHILS # (AUTO) 0.1 10^3/uL (0.0-0.1); BASOPHILS % (AUTO) 1.3 %; EOSINOPHILS # (AUTO) 0.1 10^3/uL (0.0-0.7); EOSINOPHILS % (AUTO) 0.8 %; LYMPHOCYTES # (AUTO) 3.4 10^3/uL (1.5-3.5); LYMPHOCYTES % (AUTO) 39.2 %; MEAN CORPUSCULAR HEMOGLOBIN 29.7 pg (27.0-31.0); MEAN CORPUSCULAR HGB CONC 32.6 g/dL (32.0-36.0); MEAN PLATELET VOLUME 10.2 fL (7.9-10.8); MONOCYTES # (AUTO) 0.5 10^3/uL (0.0-1.0); NEUTROPHILS # (AUTO) 4.5 10^3/uL (1.5-6.6); NEUTROPHILS % (AUTO) 52.7 %; PLT - PLATELET COUNT 286 10^3/uL (130-450); RED BLOOD COUNT 4.72 10^6/uL (4.20-5.40); RED CELL DISTRIBUTION WIDTH 12.8 % (12.0-15.0); WHITE BLOOD COUNT 8.6 x10^3/uL (4.8-10.8)
[2019-03-18 18:06] LABS: ALBUMIN 3.8 g/dL (3.2-5.5); ALBUMIN/GLOBULIN RATIO 1.1 (1.0-2.2); ALKALINE PHOSPHATASE 88 IU/L (42-121); ALT ALANINE AMINOTRANSFERASE < 10 IU/L (10-60); AST ASPARTATE AMINOTRANSFERASE 19 IU/L (10-42); BILIRUBIN,TOTAL 0.5 mg/dL (0.2-1.0); BUN - BLOOD UREA NITROGEN 20 mg/dL (6-20); CALCIUM 9.5 mg/dL (8.5-10.3); CARBON DIOXIDE - CO2 28 mmol/L (21-32); CHLORIDE 97 mmol/L (101-111); CHOL/HDL RATIO 2.6 (<4.4); CHOLESTEROL 229 mg/dL; CREATININE 0.7 mg/dL (0.4-1.0); GFR - MDRD 89 (>89); GLUCOSE 87 mg/dL (70-100); HDL CHOLESTEROL 89 mg/dL; LDL CHOLESTEROL,CALCULATED 106 mg/dL; LDL/HDL RATIO 1.2 (<4.4); SODIUM 137 mmol/L (135-145); TOTAL PROTEIN 7.4 g/dL (6.7-8.2); VLDL CHOLESTEROL 34 mg/dL
[2019-03-18 18:18] LABS: THYROID STIMULATING HORMONE 1.9 uIU/mL (0.34-5.60)
[2019-03-18 18:27] LABS: FOLATE 5.13 ng/mL (5.90 - >24.8)
== END 2019-03-18 23:59 | disposition home or self-care (01) ==
LOC: LAB.F 08:00
PROVIDERS: ATTEND Physician Assistant Medical
DX: K91.2 Postsurgical malabsorption, not elsewhere classified (principal); E03.9 Hypothyroidism, unspecified; I10 Essential (primary) hypertension; E78.5 Hyperlipidemia, unspecified
CPT/HCPCS: 36415; 80053; 80061; 82746; 83721; 84425; 84443; 85025

== ENCOUNTER 2019-05-19 10:36 | Emergency (ER) | payer MEDICARE, OTHER ==
[2019-05-19 10:47] VITALS: BP 130/95
[2019-05-19] MEDS ORDERED: predniSONE 20 MG TABLET PO STA (11:14)
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
== END 2019-05-19 11:33 | disposition home or self-care (01) ==
LOC: ED 10:36
DX: T63.441A Toxic effect of venom of bees, accidental (unintentional), initial encounter (principal); F17.200 Nicotine dependence, unspecified, uncomplicated; Z79.82 Long term (current) use of aspirin
CPT/HCPCS: 99282; 99284; J7512

== ENCOUNTER 2019-06-08 14:55 | Emergency (ER) | payer MEDICARE, OTHER ==
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
[2019-06-08] MEDS ORDERED: hydrOXYzine PAMOATE 25 MG CAPSULE PO STA (15:59)
[2019-06-08] MEDS ORDERED: CETIRIZINE 10 MG TABLET PO STA (15:59)
[2019-06-08] MEDS ORDERED: FAMOTIDINE 20 MG TABLET PO STA (15:59)
[2019-06-08] MEDS ORDERED: CHERRY SYRUP 10 ML UDC PO ONE (15:59)
[2019-06-08] MEDS ORDERED: DEXAMETHASONE 10 MG/ML VIAL PO STA (15:59)
[2019-06-08 16:22] VITALS: BP 131/92
== END 2019-06-08 16:20 | disposition home or self-care (01) ==
LOC: ED 14:55
DX: T63.441A Toxic effect of venom of bees, accidental (unintentional), initial encounter (principal); R60.0 Localized edema; L29.9 Pruritus, unspecified; R21 Rash and other nonspecific skin eruption; F17.200 Nicotine dependence, unspecified, uncomplicated
CPT/HCPCS: 99283; 99284; A9270

== ENCOUNTER 2020-03-01 10:52 | Outpatient (CLI) | payer MEDICARE, OTHER | END 2020-03-01 10:53 | disposition home or self-care (01) | LOC: COV 10:52 | PROVIDERS: ATTEND Physician Assistant | DX: Z11.59 Encounter for screening for other viral diseases (principal); M25.50 Pain in unspecified joint | CPT/HCPCS: 81599 ==

== ENCOUNTER 2020-03-01 10:58 | Outpatient (CLI) | payer MEDICARE, OTHER | END 2020-03-01 10:59 | disposition home or self-care (01) | LOC: LAB 10:58 | PROVIDERS: ATTEND Physician Assistant Medical | DX: Z79.890 Hormone replacement therapy (principal) | CPT/HCPCS: 36415; 82670; U0004; 81599 ==

== ENCOUNTER 2020-03-04 08:00 | Outpatient (CLI) | payer MEDICARE, OTHER ==
[2020-03-04 15:15] LABS: MUDS CUTOFF CONCENTRATIONS CUTOFF CONC BELOW:
[2020-03-04 18:06] LABS: COCAINE SCREEN URINE NEGATIVE (NEGATIVE); METHAMPHETAMINES SCREEN, URINE NEGATIVE (NEGATIVE); OPIATE SCREEN, URINE POSITIVE (NEGATIVE)
[2020-03-04 18:07] LABS: AMPHETAMINE SCREEN,URINE NEGATIVE (NEGATIVE); BENZODIAZEPINES SCREEN, URINE POSITIVE (NEGATIVE); METHADONE SCREEN, URINE NEGATIVE (NEGATIVE); OXYCODONE SCREEN, URINE NEGATIVE (NEGATIVE); PROPOXYPHENE SCREEN, URINE NEGATIVE (NEGATIVE); TRICYCLIC ANTIDEPRESSANT,URINE POSITIVE (NEGATIVE)
== END 2020-03-04 23:59 | disposition home or self-care (01) ==
LOC: LAB.WCP 08:00
PROVIDERS: ATTEND Physician Assistant
DX: Z79.891 Long term (current) use of opiate analgesic (principal)
CPT/HCPCS: 80306; 80335; 80346; 80361; 80365; 81599; 83992

== ENCOUNTER 2020-04-20 12:34 | Outpatient (CLI) | payer MEDICARE, OTHER ==
--- NOTE | 2020-04-21 11:39 | Mammography Report ---
BILATERAL DIGITAL SCREENING MAMMOGRAM 3D/2D: 04/20/2020 CLINICAL: Routine screening. Comparison is made to exams dated: 08/06/2018 mammogram, 07/29/2017 mammogram, 07/09/2016 mammogram, and 10/13/2014 mammogram - [facility]. The tissue of both breasts is heterogeneously dense. This may lower the sensitivity of mammography. No significant masses, calcifications, or other findings are seen in either breast. There has been no significant interval change. IMPRESSION: NEGATIVE There is no mammographic evidence of malignancy. A 1 year screening mammogram is recommended. This exam was interpreted at Station ID: [id number]. NOTE: For mammograms, a report in lay terms will be sent to the patient. Approximately 15% of breast malignancies will not be visualized mammographically. In the management of a palpable breast mass, a negative mammogram must not discourage biopsy of a clinically suspicious lesion. Electronically Signed By: Blessing wall/penrad:04/20/2020 18:08:44 ACR BI-RADS Category 1: Negative [id number] PARENCHYMAL PATTERN: (D) - The breast(s) demonstrate(s) heterogeneously dense fibroglandular evaristo vitale. BI-RADS CATEGORY: (1) - 1 RECOMMENDATION: (ANNUAL) - Recommend routine annual screening mammography. [id number] 1 year screening LATERALITY: (B)
== END 2020-04-20 12:35 | disposition home or self-care (01) ==
LOC: DI 12:34
PROVIDERS: ATTEND Physician Assistant Medical
DX: Z12.31 Encounter for screening mammogram for malignant neoplasm of breast (principal)
CPT/HCPCS: 77063; 77067

== ENCOUNTER 2020-04-20 12:36 | Outpatient (CLI) | payer MEDICARE, OTHER ==
--- NOTE | 2020-04-20 15:01 | DEXA Report ---
Reason: POSTMENOPAUSAL Procedure Date: 04/20/2020 Accession Number: [id number] / [id number] Procedure: DEX - Dexa Spine and/or Hip CPT Code: Final Report FULL RESULT: PROCEDURE: Dexa Spine and/or Hip INDICATIONS: POSTMENOPAUSAL TECHNIQUE: Dual energy x-ray absorptiometry (DXA) was performed on a [employer]. Regions measured are the AP Spine, femoral neck, and if needed forearm. COMPARISON: Reported extensive spine fixation devices, metallic, from upper thoracic into the L5 area. Therefore, lumbosacral spine bone densitometry cannot be accurately performed. The hip and forearm areas were assessed.. FINDINGS: Left Hip: Bone Mineral Density 0.762 g/cm/cm,T score -1.9, osteopenia Left Femoral Neck: Bone Mineral Density 0.991 g/cm/cm, T score -0.3, normal Left forearm, radius, and total: Bone Mineral Density 445 g/cm/cm, T score -3.8, osteoporosis (T score greater or equal to -1.0: NORMAL) (T score from -1.1 to -2.4: OSTEOPENIA) (T score less than or equal to -2.5 to: OSTEOPOROSIS) Impression: Osteopenia the left hip, osteoporosis at the left radius. Spine evaluation could not be performed due to extensive prior spine surgery with metallic implants. Patients with diagnosis of osteoporosis or osteopenia should have regular bone mineral density assessment. For those eligible for Medicare, routine testing is allowed once every 2 years. Testing frequency can be increased for patients who have rapidly progressing disease or for those who are receiving medical therapy to restore bone mass. Reviewed by: Derrick Johnson MD on 04/20/2020 3:00 PM PDT Approved by: Derrick Johnson MD on 04/20/2020 3:00 PM PDT Station ID: [id number]
== END 2020-04-20 12:37 | disposition home or self-care (01) ==
LOC: DI 12:36
PROVIDERS: ATTEND Physician Assistant Medical
DX: M81.0 Age-related osteoporosis without current pathological fracture (principal); Z98.1 Arthrodesis status
CPT/HCPCS: 77080; 77081

== ENCOUNTER 2020-12-24 14:44 | Outpatient (CLI) | payer MEDICARE, OTHER | END 2020-12-24 14:45 | disposition short-term general hospital (02) | LOC: EMS 14:44 | DX: M54.2 Cervicalgia (principal); M54.9 Dorsalgia, unspecified | CPT/HCPCS: A0425; A0429 ==

== ENCOUNTER 2021-02-06 14:41 | Outpatient (CLI) | payer OTHER, MEDICARE ==
--- NOTE | 2021-02-06 15:37 | XRAY Report ---
PROCEDURE: Cervical Spine 2 View INDICATIONS: S/P CERVICAL SPINAL FUSION TECHNIQUE: 3 view(s) of the cervical spine were acquired. COMPARISON: None. FINDINGS: Bones: No fractures or dislocations to the T1 level. The lateral masses of C1 appear intact on the odontoid view. No suspicious bony lesions. Normal alignment is maintained by anterior and posterior fusion devices extending anteriorly has a fusion plate from C4 through C7. The posterior fusion joan eliot are placed in transverse pedicle screws and vertical fixation rods across the posterior elements of C4 inferiorly into the upper thoracic spine. Soft tissues: No prevertebral soft tissue swelling. IMPRESSION: Normal alignment established by anterior and posterior fusion across the middle and lowe r thirds of the cervical spine. Reviewed by: Derrick Johnson MD on 02/06/2021 3:35 PM PDT Approved by: Derrick Johnson MD on 02/06/2021 3:35 PM PDT Station ID: [id number]
--- NOTE | 2021-02-06 17:58 | XRAY Report ---
PROCEDURE: Thoracic Spine 2 View INDICATIONS: S/P CERVICAL SPINAL FUSION TECHNIQUE: 5 views of the thoracic spine were acquired. COMPARISON: Prior CT scanning of the cervical and lumbosacral spine 03/12/2017 and 02/25/2016, respecti veltorri.. FINDINGS: Bones: No fractures or dislocations. Extensive spine fusion procedure with the cervical thoracic fus ion and also thoracolumbosacral fusion. No suspicious bony lesions. 12 pairs of ribs are noted, and appear intact where visualized. Soft tissues: No paravertebral stripe thickening. IMPRESSION: Extensive osseous fusion procedures as discussed above, without evidence of device loosening or disru ption. Normal alignment established in the areas of fusion above and below. Only slight convex rightw kaila scoliosis is present within the small portion of the thoracic spine but stabilized by fusion proc edures. Reviewed by: Derrick Johnson MD on 02/06/2021 5:57 PM PDT Approved by: Derrick Johnson MD on 02/06/2021 5:57 PM PDT Station ID: [id number]
== END 2021-02-06 14:42 | disposition home or self-care (01) ==
LOC: DI.S 14:41
PROVIDERS: ATTEND Neurological Surgery
DX: S12.600D Unspecified displaced fracture of seventh cervical vertebra, subsequent encounter for fracture with routine healing (principal); S22.010D Wedge compression fracture of first thoracic vertebra, subsequent encounter for fracture with routine healing; Z98.1 Arthrodesis status

== ENCOUNTER 2021-02-21 18:22 | Outpatient (CLI) | payer OTHER, MEDICARE ==
--- NOTE | 2021-02-22 09:45 | XRAY Report ---
PROCEDURE: Knee 4 View LT INDICATIONS: L KNEE PX TECHNIQUE: 4 views of the left knee(s) were acquired. COMPARISON: None. FINDINGS: Bones: Subacute to chronic proximal fibular shaft fracture is seen. 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 No suspicio us bony lesions. Soft tissues: No joint effusion. No suspicious soft tissue calcifications. IMPRESSION: Subacute to chronic proximal fibular shaft fracture. Mild to moderate tricompartmental o steoarthritis more prominent in medial femoral tibial compartment. No acute fracture or dislocation. No significant joint effusion. Reviewed by: Kirk Syed MD on 02/22/2021 9:43 AM PDT Approved by: Kirk Syed MD on 02/22/2021 9:43 AM PDT Station ID: [id number]
== END 2021-02-21 23:59 | disposition home or self-care (01) ==
LOC: DI.N 18:22
PROVIDERS: ATTEND Orthopaedic Surgery
DX: M25.562 Pain in left knee (principal); M17.12 Unilateral primary osteoarthritis, left knee; S82.402A Unspecified fracture of shaft of left fibula, initial encounter for closed fracture

== ENCOUNTER 2021-05-03 15:02 | Outpatient (CLI) | payer MEDICARE, OTHER ==
--- NOTE | 2021-05-04 12:11 | Mammography Report ---
BILATERAL DIGITAL SCREENING MAMMOGRAM 3D/2D: 05/03/2021 CLINICAL: Routine screening. Routine screening. Comparison is made to exams dated: 08/06/2018 mammogram, 04/20/2020 mammogram, and 07/29/2017 mammogr am - [facility]. The tissue of both breasts is heterogeneously dense. This may low er the sensitivity of mammography. No significant masses, calcifications, or other findings are seen in either breast. There has been no significant interval change. IMPRESSION: NEGATIVE There is no mammographic evidence of malignancy. A 1 year screening mammogram is recommended. This exam was interpreted at Station ID: [id number]. NOTE: For mammograms, a report in lay terms will be sent to the patient. Approximately 15% of breast malignancies will not be visualized mammographically. In the management of a palpable breast mass, a negative mammogram must not discourage biopsy of a clinically suspicious lesion. Electronically Signed By: Rizwan García M.D. ddp/penrad:05/03/2021 15:39:09 ACR BI-RADS Category 1: Negative 3341F PARENCHYMAL PATTERN: (D) - The breast(s) demonstrate(s) heterogeneously dense fibroglandular partatyy ma. BI-RADS CATEGORY: (1) - 1 RECOMMENDATION: (ANNUAL) - Recommend routine annual screening mammography. [id number] 1 year screening LATERALITY: (B)
== END 2021-05-03 15:03 | disposition home or self-care (01) ==
LOC: DI.S 15:02
DX: Z12.31 Encounter for screening mammogram for malignant neoplasm of breast (principal)

== ENCOUNTER 2021-05-25 23:09 | Outpatient (CLI) | payer MEDICARE, OTHER | END 2021-05-25 23:10 | disposition critical access hospital (66) | LOC: EMS 23:09 | DX: R40.0 Somnolence (principal) | CPT/HCPCS: A0425; A0427 ==

== ENCOUNTER 2021-05-25 23:44 | Emergency (ER) | payer MEDICARE, OTHER ==
--- NOTE | 2021-05-25 23:56 | ED Physician Documentation ---
PD HPI ALTERED MENTAL STATUS - Stated complaint Stated Complaint: MHE - History obtained from History obtained from: Patient, Family, EMS - History of Present Illness Timing - onset: How many hours ago (EMS brings patient with report from family the patient was acting a bit hyper actively and confused and then was somnolent. Family members reported there may have been a missing bottle of Valium. No alcohol use. Patient with history of bipolar disorder.), Today Timing - details: Gradual onset, Waxing and waning (just this evening with increased agitation and then somnolence.) Quality / character: Less responsive, Agitated Associated symptoms: No: Fever, Headache, Dyspnea Contributing factors: Other (Family told EMS they noted her confused/agitated, then somnolent. They looked for meds and could not find her Valium bottle. Called EMS. Pt denied overdose to medics.). 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: Narcan (without change in LOC) Similar symptoms before: Has not had sx before Review of Systems Unable to obtain: AMS (somnolent but rousable and will answer questions.) Constitutional: denies: Fever, Chills Nose: denies: Rhinorrhea / runny nose, Congestion Throat: denies: Sore throat Cardiac: denies: Chest pain / pressure Respiratory: denies: Cough GI: denies: Abdominal Pain, Vomiting, Diarrhea Neurologic: denies: Headache, Head injury PD PAST MEDICAL HISTORY - Past Medical History Cardiovascular: None Respiratory: None Endocrine/Autoimmune: None GI: Chronic constipation : Frequency, Kidney stones HEENT: None Psych: Depression, Anxiety, Panic attacks, Post traumatic stress disorder, Claustrophobia Musculoskeletal: Fibromyalgia, Chronic back pain Derm: None - Past Surgical History Past Surgical History: Yes General: Gastric surgery, Splenectomy, Colonoscopy, EGD Ortho: Spine surgery, Other /MORNING [employer]: section, 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 HEENT: Tonsil/Adenoidectomy - Present Medications Home Medications: Ambulatory Orders Medication Instructions Recorded Confirmed Acetaminophen [Tylenol] 650 mg PO Q4HR PRN #0 tablet 03/14/17 05/26/21 Folic Acid 1 mg PO DAILY #30 tablet 03/14/17 05/26/21 Thiamine [Vitamin B-1] 100 mg PO DAILY #30 tablet 03/14/17 05/26/21 Estrogens, Conjugated [Premarin] 0.625 mg PO DAILY 06/05/17 05/26/21 Quetiapine Fumarate [Seroquel] 1 tab PO DAILY 02/18/18 05/26/21 Sertraline HCl [Zoloft] 2 tab PO DAILY 02/18/18 05/26/21 Aspirin 1 tab PO DAILY PRN 05/19/19 05/26/21 cloNIDine [Catapres] 1 tab PO QPM 05/19/19 05/26/21 hydroCHLOROthiazide 1 tab PO DAILY 05/19/19 05/26/21 [Hydrochlorothiazide] Famotidine 20 mg PO DAILY #15 tablet 06/08/19 05/26/21 hydrOXYzine PAMOATE [Vistaril] 25 mg PO Q6H PRN #30 capsule 06/08/19 05/26/21 - Allergies Allergies/Adverse Reactions: Allergies Allergy/AdvReac Type Severity Reaction Status Date / Time doxycycline AdvReac Unknown Verified 05/26/21 00:01 duloxetine HCl * AdvReac Unknown Verified 05/26/21 00:01 [From Cymbalta] pregabalin [From Lyrica] AdvReac Unknown Verified 05/26/21 00:01 Sulfa (Sulfonamide AdvReac Unknown Verified 05/26/21 00:01 Antibiotics) - Social History Does the pt smoke?: Yes Smoking Status: Current every day smoker Does the pt drink ETOH?: No Does the pt have substance abuse?: No - Immunizations Immunizations are current?: Yes - POLST Patient has POLST: No PD ED PE NORMAL - Vitals Vital signs reviewed: Yes - General General: No acute distress, Well developed/nourished. No: Alert and oriented X 3 (rousable by tactile and verbal stimulus. Oriented to person and place, not sure of time. Some slight delay in processing answers. ) - HEENT HEENT: Atraumatic - Neck Neck: Supple, no meningeal sign, No adenopathy - Cardiac Cardiac: RRR, No murmur - Respiratory Respiratory: Clear bilaterally - Abdomen Abdomen: Normal bowel sounds, Soft, Non tender - Derm Derm: Normal color, Warm and dry - Extremities Extremities: Normal ROM s pain - Neuro Neuro: No motor deficit, No sensory deficit, Normal speech Results - Vitals Vitals: Vital Signs - 24 hr 05/25/21 05/26/21 23:45 01:11 Temperature 36.6 C Heart Rate 87 76 Respiratory 12 18 Rate Blood Pressure 139/95 H 128/87 H O2 Saturation 98 98 Oxygen O2 Source Room air - Labs Labs: Laboratory Tests 05/25/21 05/25/21 05/26/21 00:32 00:32 01:34 WBC 8.6 RBC 4.08 L Hgb 12.0 Hct 36.2 L MCV 88.7 MCH 29.4 MCHC 33.1 RDW 14.0 Plt Count 279 MPV 10.8 Neut # (Auto) 5.0 Lymph # (Auto) 2.7 [place] # (Auto) 0.8 Eos # (Auto) 0.1 Baso # (Auto) 0.1 Absolute Nucleated RBC 0.00 Nucleated RBC % 0.0 Sodium 137 Potassium 3.7 Chloride 101 Carbon Dioxide 23 Anion Gap 13.0 BUN 17 Creatinine 0.6 Estimated GFR (MDRD) 105 Glucose 81 Calcium 9.1 Total Bilirubin 0.3 AST 21 ALT 11 Alkaline Phosphatase 80 Total Protein 6.7 Albumin 3.6 Globulin 3.1 Albumin/Globulin Ratio 1.2 Lipase 28 TSH 1.09 Urine Color Urine Clarity Urine pH Ur Specific [place] Urine Protein Urine Glucose (UA) Urine Ketones Urine Occult Blood Urine Nitrite Urine Bilirubin Urine Urobilinogen Ur Leukocyte Esterase Ur Microscopic Review Urine Culture Comments Salicylates < 6.0 Urine Opiates Screen Ur Oxycodone Screen Urine Methadone Screen Ur Propoxyphene Screen Acetaminophen < 10 L Ur Barbiturates Screen Ur Tricyclics Screen Ur Phencyclidine Scrn Ur Amphetamine Screen U Methamphetamines Scrn U Benzodiazepines Scrn Urine Cocaine Screen U Cannabinoids Screen Ethyl Alcohol < 5.0 05/26/21 03:25 WBC RBC Hgb Hct MCV MCH MCHC RDW Plt Count MPV Neut # (Auto) Lymph # (Auto) [place] # (Auto) Eos # (Auto) Baso # (Auto) Absolute Nucleated RBC Nucleated RBC % Sodium Potassium Chloride Carbon Dioxide Anion Gap BUN Creatinine Estimated GFR (MDRD) Glucose Calcium Total Bilirubin AST ALT Alkaline Phosphatase Total Protein Albumin Globulin Albumin/Globulin Ratio Lipase TSH Urine Color YELLOW Urine Clarity CLEAR Urine pH 6.0 Ur Specific [place] <=1.005 Urine Protein NEGATIVE Urine Glucose (UA) NEGATIVE Urine Ketones NEGATIVE Urine Occult Blood NEGATIVE Urine Nitrite NEGATIVE Urine Bilirubin NEGATIVE Urine Urobilinogen 0.2 (NORMAL) Ur Leukocyte Esterase NEGATIVE Ur Microscopic Review NOT INDICATED Urine Culture Comments NOT INDICATED Salicylates Urine Opiates Screen NEGATIVE Ur Oxycodone Screen NEGATIVE Urine Methadone Screen NEGATIVE Ur Propoxyphene Screen NEGATIVE Acetaminophen Ur Barbiturates Screen NEGATIVE Ur Tricyclics Screen NEGATIVE Ur Phencyclidine Scrn NEGATIVE Ur Amphetamine Screen NEGATIVE U Methamphetamines Scrn NEGATIVE U Benzodiazepines Scrn POSITIVE H Urine Cocaine Screen NEGATIVE U Cannabinoids Screen NEGATIVE Ethyl Alcohol PD MEDICAL DECISION MAKING - ED course Complexity details: reviewed results, re-evaluated patient (She is somewhat disoriented or slow to process initially, and allowed to sleep few hours (with good vitals). Roused and well oriented and conversant. Denies SI/OD nor extra meds. She feels able to go home and will call for ride. ), considered differential (Reportedly acting agitated then somnolent. Family concerned about extra medication as could not find diazepam bottle. Pt denies OD. No change in meds. No illness. ), d/w patient Departure - Departure Disposition: 01 Home, Self Care Clinical Impression: Altered mental status Qualifiers: Altered mental status type: delirium Qualified Code(s): R41.0 - Disorientation, unspecified Condition: Stable Record reviewed to determine appropriate education?: Yes Comments: Stay well-hydrated and continue usual medications. Follow-up with your primary care if recurrent problems or symptoms and return to the ER as needed.
[2021-05-26 00:49] LABS: ACETAMINOPHEN < 10 ug/mL (10-30); ALBUMIN 3.6 g/dL (3.2-5.5); ALBUMIN/GLOBULIN RATIO 1.2 (1.0-2.2); ALKALINE PHOSPHATASE 80 IU/L (42-121); ALT ALANINE AMINOTRANSFERASE 11 IU/L (10-60); AST ASPARTATE AMINOTRANSFERASE 21 IU/L (10-42); BILIRUBIN,TOTAL 0.3 mg/dL (0.2-1.0); BUN - BLOOD UREA NITROGEN 17 mg/dL (6-20); CALCIUM 9.1 mg/dL (8.5-10.3); CARBON DIOXIDE - CO2 23 mmol/L (21-32); CHLORIDE 101 mmol/L (101-111); CREATININE 0.6 mg/dL (0.4-1.0); ETOH - ETHANOL < 5.0 mg/dL; GFR - MDRD 105 (>89); GLUCOSE 81 mg/dL (70-100); LIPASE 28 U/L (22-51); POTASSIUM 3.7 mmol/L (3.5-5.0); SALICYLATE < 6.0 mg/dL; SODIUM 137 mmol/L (135-145); TOTAL PROTEIN 6.7 g/dL (6.7-8.2)
[2021-05-26 01:37] LABS: BASOPHILS # (AUTO) 0.1 10^3/uL (0.0-0.1); BASOPHILS % (AUTO) 0.6 %; EOSINOPHILS # (AUTO) 0.1 10^3/uL (0.0-0.7); EOSINOPHILS % (AUTO) 0.6 %; HCT - HEMATOCRIT 36.2 % (37.0-47.0); LYMPHOCYTES # (AUTO) 2.7 10^3/uL (1.5-3.5); LYMPHOCYTES % (AUTO) 31.1 %; MEAN CORPUSCULAR HEMOGLOBIN 29.4 pg (27.0-31.0); MEAN CORPUSCULAR HGB CONC 33.1 g/dL (32.0-36.0); MEAN CORPUSCULAR VOLUME 88.7 fL (81.0-99.0); MEAN PLATELET VOLUME 10.8 fL (7.9-10.8); MONOCYTES # (AUTO) 0.8 10^3/uL (0.0-1.0); MONOCYTES % (AUTO) 9.2 %; NEUTROPHILS % (AUTO) 58.4 %; PLT - PLATELET COUNT 279 10^3/uL (130-450); RED BLOOD COUNT 4.08 10^6/uL (4.20-5.40); WHITE BLOOD COUNT 8.6 x10^3/uL (4.8-10.8)
[2021-05-26 03:31] LABS: MUDS CUTOFF CONCENTRATIONS CUTOFF CONC BELOW:
[2021-05-26 03:33] LABS: BILIRUBIN,URINE NEGATIVE (NEGATIVE); GLUCOSE, URINE (UA) NEGATIVE (NEGATIVE); KETONES,URINE (UA) NEGATIVE (NEGATIVE); LEUKOCYTE ESTERASE, URINE NEGATIVE (NEGATIVE); NITRITE,URINE NEGATIVE (NEGATIVE); OCCULT BLOOD,URINE NEGATIVE (NEGATIVE); PROTEIN,URINE NEGATIVE (NEGATIVE); UROBILINOGEN,URINE 0.2 (NORMAL) E.U./dL (NORMAL)
[2021-05-26 03:35] LABS: CLARITY,URINE CLEAR (CLEAR)
[2021-05-26 03:43] LABS: AMPHETAMINE SCREEN,URINE NEGATIVE (NEGATIVE); BARBITURATE SCREEN,UR NEGATIVE (NEGATIVE); BENZODIAZEPINES SCREEN, URINE POSITIVE (NEGATIVE); COCAINE SCREEN URINE NEGATIVE (NEGATIVE); METHADONE SCREEN, URINE NEGATIVE (NEGATIVE); METHAMPHETAMINES SCREEN, URINE NEGATIVE (NEGATIVE); OPIATE SCREEN, URINE NEGATIVE (NEGATIVE); OXYCODONE SCREEN, URINE NEGATIVE (NEGATIVE); PROPOXYPHENE SCREEN, URINE NEGATIVE (NEGATIVE); THC CANNABINOID SCREEN, URINE NEGATIVE (NEGATIVE); TRICYCLIC ANTIDEPRESSANT,URINE NEGATIVE (NEGATIVE)
[2021-05-26 07:08] VITALS: BP 116/79
== END 2021-05-26 07:08 | disposition home or self-care (01) ==
LOC: EDUNIT# → EDBD → ED 23:44
DX: R41.0 Disorientation, unspecified (principal)
CPT/HCPCS: 36415; 80053; 80306; 80307; 81003; 83690; 84443; 85025; 93005; 99284; G0480; 80320; 80329; 81001; 87086

== ENCOUNTER 2021-06-01 14:03 | Outpatient (CLI) | payer MEDICARE, OTHER | END 2021-06-01 14:04 | disposition home or self-care (01) | LOC: COV 14:03 | PROVIDERS: ATTEND Family Medicine | DX: U07.1 COVID-19 (principal) ==

== ENCOUNTER 2021-07-11 11:44 | Outpatient (CLI) | payer MEDICARE, OTHER ==
[2021-07-11 12:04] LABS: BASOPHILS # (AUTO) 0.1 10^3/uL (0.0-0.1); BASOPHILS % (AUTO) 0.9 %; EOSINOPHILS % (AUTO) 0.2 %; HCT - HEMATOCRIT 37.4 % (37.0-47.0); HGB - HEMOGLOBIN 12.4 g/dL (12.0-16.0); LYMPHOCYTES # (AUTO) 2.1 10^3/uL (1.5-3.5); LYMPHOCYTES % (AUTO) 23.8 %; MEAN CORPUSCULAR HGB CONC 33.2 g/dL (32.0-36.0); MEAN CORPUSCULAR VOLUME 87.6 fL (81.0-99.0); MEAN PLATELET VOLUME 10.6 fL (7.9-10.8); MONOCYTES # (AUTO) 0.5 10^3/uL (0.0-1.0); MONOCYTES % (AUTO) 5.5 %; NEUTROPHILS # (AUTO) 6.1 10^3/uL (1.5-6.6); NEUTROPHILS % (AUTO) 69.4 %; PLT - PLATELET COUNT 380 10^3/uL (130-450); RED BLOOD COUNT 4.27 10^6/uL (4.20-5.40); RED CELL DISTRIBUTION WIDTH 14.1 % (12.0-15.0); WHITE BLOOD COUNT 8.9 x10^3/uL (4.8-10.8)
[2021-07-11 12:11] LABS: SLIDE REVIEW? Indicated
[2021-07-11 12:33] LABS: ALBUMIN 3.7 g/dL (3.2-5.5); ALBUMIN/GLOBULIN RATIO 1.1 (1.0-2.2); ALKALINE PHOSPHATASE 92 IU/L (42-121); ALT ALANINE AMINOTRANSFERASE 13 IU/L (10-60); AST ASPARTATE AMINOTRANSFERASE 19 IU/L (10-42); BILIRUBIN,TOTAL 0.5 mg/dL (0.2-1.0); BUN - BLOOD UREA NITROGEN 15 mg/dL (6-20); CARBON DIOXIDE - CO2 28 mmol/L (21-32); CHLORIDE 98 mmol/L (101-111); CHOL/HDL RATIO 2.4 (<4.4); CHOLESTEROL 190 mg/dL; CREATININE 0.6 mg/dL (0.4-1.0); GFR - MDRD 105 (>89); GLUCOSE 94 mg/dL (70-100); HDL CHOLESTEROL 78 mg/dL; LDL CHOLESTEROL,CALCULATED 95 mg/dL; LDL/HDL RATIO 1.2 (<4.4); POTASSIUM 3.6 mmol/L (3.5-5.0); SODIUM 137 mmol/L (135-145); TRIGLYCERIDES 87 mg/dL; VLDL CHOLESTEROL 17 mg/dL
[2021-07-11 12:45] LABS: FERRITIN 14.7 ng/mL (11.0-306.8)
[2021-07-11 12:55] LABS: PLATELET ESTIMATE, MANUAL NORMAL (130-450,000) (NORMAL); PLATELET MORPHOLOGY NORMAL APPEARANCE (NORMAL); RBC MORPHOLOGY (MULTIPLE) NORMAL APPEARANCE (NORMAL); WBC MORPHOLOGY (MULTIPLE) NORMAL APPEARANCE (NORMAL)
== END 2021-07-11 11:45 | disposition home or self-care (01) ==
LOC: LAB 11:44
PROVIDERS: ATTEND Internal Medicine
DX: E78.5 Hyperlipidemia, unspecified (principal); Z79.899 Other long term (current) drug therapy; D64.9 Anemia, unspecified
CPT/HCPCS: 36415; 80053; 80061; 82607; 82728; 83721; 85025

== ENCOUNTER 2021-08-06 12:42 | Outpatient (CLI) | payer MEDICARE, OTHER ==
--- NOTE | 2021-08-06 13:32 | CT Report ---
PROCEDURE: CHEST WO INDICATIONS: MULTIPLE LUNG NODULES TECHNIQUE: Noncontrast 1mm axial images were acquired from the pulmonary apices to the posterior costophrenic an gles. Axial 5 mm soft tissue kernel reconstructions were performed as well as 8 mm axial MIP and cor onal and sagittal 5 mm reformations. For radiation dose reduction, the following was used: automate d exposure control, adjustment of mA and/or kV according to patient size. COMPARISON: None FINDINGS: Image quality: Mildly limited given artifact from spinal hardware most prominent at the lung apices a s well as at the lung bases, inferior mediastinum, and superior abdomen Lungs and pleura: No acute air space opacities. Atelectasis/scarring noted within the right lower l obe with mild dependent atelectasis noted within the left lower lobe. No pleural effusions or pneumot horax. Central and peripheral airways are patent and normal in caliber. Multiple pulmonary nodules are identified. There is a 5 mm subpleural pulmonary nodule within the right middle lobe (4; 15 8/2 9 7). Calcified granuloma is noted within the right upper lobe (4; 59). Additional 3 mm nodules are not ed within the superior aspect of the right lower lobe (4; 82), the subpleural aspect of the left uppe r lobe anteriorly (4; 167), and within the subpleural region of the left upper lobe (4; 115). Mediastinum: Heart size is normal. Mild multilevel coronary vascular calcifications. No pericardial effusion. No mediastinal adenopathy by size criteria. Thoracic aorta and central pulmonary arterie s are normal in size. Esophagus is normal in caliber. No hiatal hernia. Bones and chest wall: No suspicious bony lesions. No vertebral body compression fractures. Postsurg ical changes of posterior fusion of the upper thoracic spine from T1 through T3 as well as T9 through the upper lumbar spine. No evidence of hardware complication. Endplate degenerative sclerosis is not ed at T7-T8. Postsurgical changes of the lower cervical spine incompletely evaluated. No axillary or supraclavicular adenopathy by size criteria. The thyroid is normal in size and there are no incident al findings. Abdomen: Postsurgical changes of prior bypass. IMPRESSION: Multiple pulmonary nodules the largest measuring 5 mm within the right middle lobe. No prior exams ar e available to determine stability. Recommend correlation with outside imaging. If none available, if patient at high risk for lung malignancy, recommend repeat chest CT in approximately 1 year. No acute intrathoracic abnormality. Diffuse postsurgical changes of the spine. Reviewed by: Waqas Klein DO on 08/06/2021 12:30 PM AARCELI Approved by: Waqas Klein DO on 08/06/2021 12:30 PM ARACELI Station ID: [id number]
== END 2021-08-06 12:43 | disposition home or self-care (01) ==
LOC: DI 12:42
PROVIDERS: ATTEND Internal Medicine
DX: R91.8 Other nonspecific abnormal finding of lung field (principal)

== ENCOUNTER 2021-08-25 13:38 | Outpatient (CLI) | payer OTHER, MEDICARE | END 2021-08-25 13:39 | disposition short-term general hospital (02) | LOC: EMS 13:38 | DX: Z04.1 Encounter for examination and observation following transport accident (principal); R41.0 Disorientation, unspecified; R51.9 Headache, unspecified; M54.2 Cervicalgia; M54.9 Dorsalgia, unspecified | CPT/HCPCS: A0425; A0427 ==

== ENCOUNTER 2021-10-04 14:39 | Outpatient (CLI) | payer OTHER, MEDICARE ==
--- NOTE | 2021-10-04 15:17 | XRAY Report ---
PROCEDURE: Cervical Spine 2 View INDICATIONS: CLOSED DISPLACED FRACTURE OF SECOND CERVICAL VERTE TECHNIQUE: 3 view(s) of the cervical spine were acquired. COMPARISON: Cervical spine x-ray on 02/06/2021 FINDINGS: Bones: There is a type III odontoid fracture with 3 mm anterior displacement of the odontoid. The lat eral masses of C1 appear intact on the odontoid view. The fracture is not well visualized on the ante rior odontoid view. Anterior and posterior fixation spanning from C4 to C7 anteriorly is seen with po sterior fixation spanning from C4 to T3. There is grade 1 anterolisthesis of C7 over T1. Soft tissues: No prevertebral soft tissue swelling. IMPRESSION: 1. Known odontoid fracture with anterior displacement of 3 mm. 2. Postoperative changes in the lower cervical spine spanning from C4 through T3 with anterolisthesis of C7-T1, unchanged compared to prior x-ray on 02/06/2021. Reviewed by: Abdulkadir Tomlinson on 10/04/2021 3:15 PM PST Approved by: Abdulkadir Tomlinson on 10/04/2021 3:15 PM PST Station ID: [id number]
== END 2021-10-04 14:40 | disposition home or self-care (01) ==
LOC: DI.S 14:39
PROVIDERS: ATTEND Nurse Practitioner Family
DX: S12.100A Unspecified displaced fracture of second cervical vertebra, initial encounter for closed fracture (principal); M43.12 Spondylolisthesis, cervical region

== ENCOUNTER 2021-10-11 13:30 | Outpatient (CLI) | payer MEDICARE, OTHER ==
[2021-10-11] MEDS ORDERED: iohexoL-300 100 ML VIAL ONE (14:53)
[2021-10-11 15:00] LABS: CALCIUM 9.1 mg/dL (8.5-10.3); CREATININE 0.6 mg/dL (0.4-1.0); POTASSIUM 3.6 mmol/L (3.5-5.0)
--- NOTE | 2021-10-11 16:44 | MRI Report ---
PROCEDURE: Cervical Spine W/O INDICATIONS: CLOSED DISPLACED FRACTURE OF 2ND CERVICAL VERTEBRA TECHNIQUE: Noncontrast sagittal T1 spin echo and T2 fast spin echo, sagittal STIR, foraminal oblique sagittal T2 fast spin echo, and axial gradient echo or T2 fast spin echo through the cervical spine. COMPARISON: Correlation is made with prior cervical spine plain films, 10/04/2021. FINDINGS: Image quality: There is artifact associated with the metallic hardware. Motion artifact is noted. Alignment and Curvature: There is normal bony alignment. Bone Marrow: Marrow demonstrates normal overall signal. No chronic fracture is seen involving the d ens. Spinal Cord: Visualized spinal cord has normal size and signal. No cerebellar tonsillar herniation. Paraspinous Soft Tissues: No paravertebral masses. Prevertebral soft tissues are normal in thicknes s. Extensive postoperative fixation hardware is seen anteriorly and posteriorly, with associated suscept ibility artifact. C2-C3: The disc height is well-preserved. There is loss of disc signal seen. No significant neural f oraminal or central canal narrowing can be seen. C3-C4: The disc height is well-preserved. There is loss of disc signal seen. Mild disc osteophyte complex is seen. Mild facet hypertrophy is seen. There is minimal right-sided and no left-sided n euroforaminal narrowing seen. No central canal narrowing is seen. C4-C5: Mild disc osteophyte complex is seen. There is minimal right-sided and mild left-sided neurof oraminal narrowing seen. No significant central canal narrowing is seen. C5-C6: No significant neuroforaminal or central canal narrowing can be seen at this level. C6-C7: At this level, no significant neuroforaminal narrowing or central canal narrowing can be seen . C7-T1: Mild loss of disc height and disc signal are seen. Mild disc osteophyte complex is seen. Th ere is minimal left-sided and no right-sided neuroforaminal narrowing seen. No significant central ca nal narrowing can be seen. IMPRESSION: Limited study with susceptibility artifact from the patient's extensive fixation hardware. Chronic dens fracture. Mild overall cervical spine degenerative changes are seen. Reviewed by: Babatunde Dueñas MD on 10/11/2021 3:43 PM AKST Approved by: Babatunde Dueñas MD on 10/11/2021 3:43 PM AK Station ID: [id number]
[2021-10-11] MEDS ORDERED: iohexoL-300 100 ML VIAL IVP ONE (18:42)
--- NOTE | 2021-10-11 18:56 | CT Report ---
PROCEDURE: ANGIO HEAD W/WO INDICATIONS: CLOSED DISPLACED FRACTURE OF 2ND CERVICAL VERTEBRA CONTRAST: IV CONTRAST: Optiray 320 ml: 100 PO CONTRAST: *NO PO CONTRAST TECHNIQUE: Precontrast 4.5 mm thick angled axial sections acquired from the foramen magnum to the vertex. Afte r the administration of intravenous contrast, 1 mm thick sections acquired through the [place] of [place] is. Postcontrast 4.5 mm thick sections then re-acquired from the foramen magnum to the vertex. 3-di mensional vasibyp-kjdcxtrwy-rkygjkfgyy (MIP) and/or volume rendering reformats were acquired of the c entral intracranial vasculature. For radiation dose reduction, the following was used: automated ex posure control, adjustment of mA and/or kV according to patient size. COMPARISON: MRI brain 10/26/2017 FINDINGS: Image quality: Excellent. Anterior circulation: Intracranial internal carotid arteries are normal in size and flow. The flow within the paired anterior cerebral arteries is normal and symmetric. The flow within the middle cer ebral arteries is normal and symmetric. The anterior communicating artery is seen. No aneurysms are seen. Posterior circulation: Visualized portions of the vertebral arteries demonstrate normal caliber, and join to form a normal appearing basilar artery. Flow within the posterior cerebral arteries is norm al and symmetric. No aneurysms are seen. Normal postcontrast enhancement of the dural sinuses. CSF spaces: Ventricles are normal in size and shape. Basal cisterns are patent. No extra-axial flu id collections. Brain: No midline shift. No intracranial bleeds or masses. [place]-white matter interface appears int act. Skull and face: Calvarium and facial bones appear intact, without suspicious lesions. Sinuses: Visualized sinuses and mastoids are clear. IMPRESSION: 1. No acute intracranial disease process. 2. No large vessel occlusion, vessel stenosis, vascular dissection or aneurysm. Reviewed by: Lakeshia Strauss MD, PhD on 10/11/2021 6:54 PM PST Approved by: Lakeshia Strauss MD, PhD on 10/11/2021 6:54 PM PST Station ID: [id number]
--- NOTE | 2021-10-12 16:55 | CT Report ---
PROCEDURE: ANGIO NECK W INDICATIONS: CLOSED DISPLACED FRACTURE OF 2ND CERVICAL VERTEBRA CONTRAST: IV CONTRAST: Optiray 320 ml: 100 PO CONTRAST: *NO PO CONTRAST TECHNIQUE: After the administration of intravenous contrast, 1.5 mm axial sections acquired from the aortic arch to the [place] of [place]. Coronal 3-D maximum intensity projection (MIP) and/or volume rendering ref ormats were then performed. For radiation dose reduction, the following was used: automated exposur e control, adjustment of mA and/or kV according to patient size. COMPARISON: CT cervical spine 10/11/2021, MRI cervical spine , x-ray cervical spine 10/04/2021, x-ray cervical spine 02/06/2021 MRI brain 10/26/2017, CT cervical spine 03/12/2017 FINDINGS: Image quality: Excellent. Carotid system: The great vessels demonstrate a conventional anatomy as they arise from the aortic a rch. The origins of the common carotid arteries appear patent. The common carotid arteries demonstr ate normal calibers and courses. The bifurcation regions appear normal bilaterally. The internal ca rotid arteries demonstrate normal caliber and course. Posterior circulation: The origins of the vertebral arteries appear patent. The more superior porti ons of the vertebral arteries demonstrate normal course and caliber. They join to form a normal appe aring basilar artery. Soft tissues: Visualized neck soft tissues demonstrate no suspicious abnormalities. The thyroid is normal in size and there are no incidental findings. Bones: There is a C2 fracture with 3 mm anterior displacement of the proximal fragment in relation to the distal fragment. The fracture is identified at the base of the odontoid extending into the dens. Appearance is unchanged compared to x-ray cervical spine 10/04/2021. Anterior fusion is present at C 4-C7. Hardware is intact. Posterior fusion is present from C4 through T3. Visualized cervical spine a ppears normally aligned. IMPRESSION: Type III odontoid fracture with 3 mm anterior displacement as above stable. There are no areas of hemodynamically significant stenosis, vascular occlusion or aneurysmal dilation within the neck vasculature. The estimate of stenosis included in the report of the imaging study was calculated using the NASCET method CLINICAL RECOMMENDATION STATEMENTS: In patients <35 years with an ITN detected on CT, MRI, or extrathyroidal ultrasound, the Committee re commends further evaluation with dedicated thyroid ultrasound if the nodule is "e1 cm and has no susp icious imaging features, and if the patient has normal life expectancy. In patients "e35 years with an ITN detected on CT, MRI, or extrathyroidal ultrasound, the Committee r ecommends further evaluation with dedicated thyroid ultrasound if the nodule is "e1.5 cm and has no s uspicious imaging features, and if the patient has normal life expectancy. (ACR, 2014) Reviewed by: Heidy Byrnes MD on 10/12/2021 4:54 PM PST Approved by: Heidy Byrnes MD on 10/12/2021 4:54 PM PST Station ID: [id number]
--- NOTE | 2021-10-12 17:04 | CT Report ---
PROCEDURE: CERVICAL SPINE WO INDICATIONS: CLOSED DISPLACE FRACTURE OF 2ND CERVICAL VERTEBRA TECHNIQUE: Noncontrast 3 mm thick sections acquired from the skull base to the T4 level. Sagittal and coronal r eformats were then constructed. For radiation dose reduction, the following was used: automated exp osure control, adjustment of mA and/or kV according to patient size. COMPARISON: X-ray cervical spine 10/04/2021, CTA head and neck 10/11/2021, MR cervical spine 10/11/2021 FINDINGS: Image quality: Excellent. Bones: Anterior fusion is present from C4 through C7 as well as posterior fusion from C4 through T3. Hardware is intact with good anatomic alignment. There is a fracture at the level of C2 extending fro m the base of the dens into the odontoid. There is 3 mm anterior displacement of the proximal fragmen t in relation to the distal fragment. Visualized superior ribs are intact. Soft tissues: Prevertebral soft tissues are normal in thickness. No paravertebral hematomas. No ap ical pneumothoraces. IMPRESSION: Type III odontoid fracture as above. Multilevel cervical fixation as above. Reviewed by: Heidy Byrnes MD on 10/12/2021 5:03 PM PST Approved by: Heidy Byrnes MD on 10/12/2021 5:03 PM PST Station ID: [id number]
== END 2021-10-11 13:31 | disposition home or self-care (01) ==
LOC: DI 13:30
PROVIDERS: ATTEND Neurological Surgery
DX: Z01.812 Encounter for preprocedural laboratory examination (principal); S12.100D Unspecified displaced fracture of second cervical vertebra, subsequent encounter for fracture with routine healing; M47.812 Spondylosis without myelopathy or radiculopathy, cervical region; M48.02 Spinal stenosis, cervical region; M48.03 Spinal stenosis, cervicothoracic region
CPT/HCPCS: 36415; 70496; 70498; 72125; 72141; 80048; Q9967

== ENCOUNTER 2021-10-30 14:57 | Outpatient (CLI) | payer OTHER, MEDICARE ==
--- NOTE | 2021-10-30 16:20 | XRAY Report ---
PROCEDURE: Cervical Spine 2 View INDICATIONS: FX OF SECNOD CERVICAL VERTEBRA TECHNIQUE: 5 view(s) of the cervical spine were acquired. COMPARISON: CT of cervical spine dated 10/11/2021. FINDINGS: Bones: Slightly displaced fracture at base of dens is again seen with persistent radiolucency noted a t fracture site not significantly changed from prior study. Post anterior fusion changes are noted at C4-C7 levels. Post posterior fusion changes are seen at C4-T3 level. No gross hardware loosening or failure is seen. No new fracture or dislocation. The lateral masses of C1 appear intact on the odonto id view. No suspicious bony lesions. Soft tissues: No prevertebral soft tissue swelling. IMPRESSION: Stable appearance of odontoid fracture unchanged in cervical spine alignment compared to previous CT study. No new fracture or dislocation. No gross hardware complication. Reviewed by: Kirk Syed MD on 10/30/2021 4:19 PM PST Approved by: Kirk Syed MD on 10/30/2021 4:19 PM PST Station ID: [id number]
== END 2021-10-30 14:58 | disposition home or self-care (01) ==
LOC: DI.S 14:57
PROVIDERS: ATTEND Neurological Surgery
DX: S12.190D Other displaced fracture of second cervical vertebra, subsequent encounter for fracture with routine healing (principal); M53.2X2 Spinal instabilities, cervical region

== ENCOUNTER 2021-11-23 11:04 | Outpatient (CLI) | payer MEDICARE, OTHER ==
[2021-11-23 14:45] LABS: BASOPHILS # (AUTO) 0.1 10^3/uL (0.0-0.1); BASOPHILS % (AUTO) 0.9 %; EOSINOPHILS # (AUTO) 0.3 10^3/uL (0.0-0.7); EOSINOPHILS % (AUTO) 3.5 %; HCT - HEMATOCRIT 34.9 % (37.0-47.0); HGB - HEMOGLOBIN 11.3 g/dL (12.0-16.0); LYMPHOCYTES # (AUTO) 4.2 10^3/uL (1.5-3.5); LYMPHOCYTES % (AUTO) 50.9 %; MEAN CORPUSCULAR HGB CONC 32.4 g/dL (32.0-36.0); MEAN CORPUSCULAR VOLUME 89.7 fL (81.0-99.0); MEAN PLATELET VOLUME 12.5 fL (7.9-10.8); MONOCYTES # (AUTO) 0.7 10^3/uL (0.0-1.0); MONOCYTES % (AUTO) 8.2 %; NEUTROPHILS % (AUTO) 36.3 %; PLT - PLATELET COUNT 228 10^3/uL (130-450); RED BLOOD COUNT 3.89 10^6/uL (4.20-5.40); RED CELL DISTRIBUTION WIDTH 15.8 % (12.0-15.0); WHITE BLOOD COUNT 8.2 x10^3/uL (4.8-10.8)
[2021-11-23 14:55] LABS: PT - PROTHROMBIN TIME 11.2 secs (9.9-12.6)
[2021-11-23 15:02] LABS: PARTIAL THROMBOPLASTIN TIME 29.7 secs (24.9-33.3)
[2021-11-23 15:15] LABS: PLATELET ESTIMATE, MANUAL NORMAL (130-450,000) (NORMAL); PLATELET MORPHOLOGY 1+ LARGE PLATELETS (NORMAL); RBC MORPHOLOGY (MULTIPLE) NORMAL APPEARANCE (NORMAL); SLIDE REVIEW? Indicated
[2021-11-23 15:54] LABS: ALBUMIN 3.3 g/dL (3.2-5.5); BILIRUBIN,TOTAL 0.3 mg/dL (0.2-1.0); CALCIUM 8.9 mg/dL (8.5-10.3); CREATININE 0.6 mg/dL (0.4-1.0); POTASSIUM 3.8 mmol/L (3.5-5.0); TOTAL PROTEIN 6.5 g/dL (6.7-8.2)
[2021-11-23 20:02] LABS: ESTIMATED AVERAGE GLUCOSE 105 mg/dL (70-100); HEMOGLOBIN A1c% 5.3 % (4.27-6.07)
== END 2021-11-23 11:05 | disposition home or self-care (01) ==
LOC: LAB.S 11:04
PROVIDERS: ATTEND Internal Medicine
DX: Z01.812 Encounter for preprocedural laboratory examination (principal)
CPT/HCPCS: 36415; 80053; 83036; 85025; 85610; 85730

== ENCOUNTER 2022-11-12 11:40 | Outpatient (CLI) | payer MEDICARE, OTHER ==
[2022-11-13 17:59] LABS: CALCIUM 9.9 mg/dL (8.5-10.3); CREATININE 0.7 mg/dL (0.4-1.0); POTASSIUM 3.7 mmol/L (3.5-5.0)
== END 2022-11-12 11:41 | disposition home or self-care (01) ==
LOC: LAB.S 11:40
PROVIDERS: ATTEND Internal Medicine
DX: I10 Essential (primary) hypertension (principal)
CPT/HCPCS: 36415; 80048; 83735

== ENCOUNTER 2023-02-09 07:00 | Outpatient (CLI) | payer MEDICARE, OTHER ==
--- NOTE | 2023-02-09 14:13 | XRAY Report ---
PROCEDURE: Lumbar Spine 2 View INDICATIONS: SACRAL BACK PAIN TECHNIQUE: 4 views of the lumbar spine were acquired. COMPARISON: None. FINDINGS: Bones: Posterior fixation of the thoracic through sacral spine with iliac wing screw fixation. Disc p rosthesis at L2-L3 and L3-L4. No evidence of hardware complication. Surgical clips within the right u pper quadrant. Surgical clips left upper quadrant. There is normal bony alignment. No vertebral body compression fractures. No suspicious bony lesions. Soft tissues: Overlying bowel gas pattern is normal. No suspicious soft tissue calcifications. IMPRESSION: Posterior fixation without evidence of hardware application. Reviewed by: George Rodarte MD on 02/09/2023 1:11 PM ARACELI Approved by: George Rodarte MD on 02/09/2023 1:11 PM ARACELI Station ID: [id number]
== END 2023-02-09 23:59 | disposition home or self-care (01) ==
LOC: DI.S 07:00
PROVIDERS: ATTEND Emergency Medicine
DX: M54.89 Other dorsalgia (principal)

== ENCOUNTER 2023-04-03 09:52 | Outpatient (CLI) | payer MEDICARE, OTHER ==
--- NOTE | 2023-04-04 09:25 | Mammography Report ---
BILATERAL DIGITAL SCREENING MAMMOGRAM 3D/2D: 04/03/2023 CLINICAL: Routine screening. Comparison is made to exams dated: 05/03/2021 mammogram, 04/20/2020 mammogram, 08/06/2018 mammogram, a nd 07/29/2017 mammogram - [facility]. Both breasts are heterogeneously dense, which may obscure small masses (category c / 51-75% glandular tissue). No significant masses, calcifications, or other findings are seen in either breast. There has been no significant interval change. IMPRESSION: NEGATIVE There is no mammographic evidence of malignancy. A 1 year screening mammogram is recommended. Based on the Tyrer Cuzick model (a risk assessment model) the patients lifetime risk is 10.7% and he r 10 year risk is 3.1%. According to the ACR, ACS, and NCCN guidelines, an annual breast MRI exam ronni ng with mammogram is recommended if the patients lifetime risk is 20% or greater. This exam was interpreted at Station ID: [id number]. NOTE: For mammograms, a report in lay terms will be sent to the patient. Approximately 15% of breast malignancies will not be visualized mammographically. In the management of a palpable breast mass, a negative mammogram must not discourage biopsy of a clinically suspicious lesion. Electronically Signed By: Dejon zavala/jah:04/03/2023 10:39:28 letter sent: No_Letter ACR BI-RADS Category 1: Negative 3341F PARENCHYMAL PATTERN: (D) - The breast(s) demonstrate(s) heterogeneously dense fibroglandular evaristo vitale. BI-RADS CATEGORY: (1) - 1 Mammogram [id number] 1 year screening LATERALITY: (B)
== END 2023-04-03 09:53 | disposition home or self-care (01) ==
LOC: DI.S 09:52
DX: Z12.31 Encounter for screening mammogram for malignant neoplasm of breast (principal)

== ENCOUNTER 2023-05-28 13:08 | Outpatient (CLI) | payer MEDICARE, OTHER ==
--- NOTE | 2023-05-28 16:54 | DEXA Report ---
PROCEDURE: Dexa Spine and/or Hip INDICATIONS: POST MENOPAUSAL TECHNIQUE: Dual energy x-ray absorptiometry (DXA) was performed on a [email or web address] System. Regions measur ed are the AP Spine, femoral neck, and if needed forearm. COMPARISON: 04/20/2020 FINDINGS: Left Femoral Neck: Bone Mineral Density 0.7 g/cm/cm, T score -2.4. Osteopenia Left Forearm: Bone Mineral Density 0.58 g/cm/cm, T score -4.1. Osteoporosis Impression: By WHO criteria, this patient has osteopenia of the left femoral neck and osteoporosis of the left fo rearm Patients with diagnosis of osteoporosis or osteopenia should have regular bone mineral density assess ment. For those eligible for Medicare, routine testing is allowed once every 2 years. Testing frequ ency can be increased for patients who have rapidly progressing disease or for those who are receivin g medical therapy to restore bone mass. Reviewed by: Annita Cantu MD on 05/28/2023 4:53 PM PDT Approved by: Annita Cantu MD on 05/28/2023 4:53 PM PDT Station ID: [id number]
--- NOTE | 2023-05-29 09:46 | CT Report ---
PROCEDURE: Low Dose Lung Cancer Screen INDICATIONS: HIST OF SMOKING TECHNIQUE: A CT scan of the chest was performed. Intravenous contrast media was not administered. Images were re corded and evaluated at appropriate window settings. Reformats: axial MIP of the chest, coronal and s agittal. For radiation dose reduction, the following was used: automated exposure control, adjustment of mA and/or kV according to patient size. COMPARISON: 08/06/2021 FINDINGS: Image quality: Excellent. Prior cancer history: Unknown Lungs and pleura: No pleural effusions. No pneumothorax. 5 mm solid subpleural nodule anterolateral right middle lobe, 3/182, stable. Coarse left upper lobe calcification, 3/70. Scattered tiny pulmonar y nodules, superior segment right lower lobe, 3/110, and anterolateral left upper lobe, 3/122 and 124 . No suspicious new nodules. Posterior medial scarring in the right lower lobe. No acute consolidatio ns or groundglass opacities. Central and peripheral airways are normal caliber without bronchial wall thickening or bronchiectasis. Mediastinum: Heart size is mildly enlarged. Mild coronary artery calcification. No pericardial effusi on. No large vessel abnormality. No mediastinal adenopathy by size criteria. No anterior or posterio r mediastinal mass. Normal esophagus without hiatal hernia Chest wall and lower neck: There is interval increased density and definition of the 1.4 cm lateral l eft breast mass compared to the prior study. This mass is not well seen on recent mammogram. No axill kiana or supraclavicular adenopathy by size. The thyroid gland is within normal limits. Bones: Anterior and posterior cervical thoracic and lumbar fusion hardware. No suspicious bone lesion s. Upper Abdomen: Surgical changes to the stomach partially seen in the upper abdomen. Prior cholecystec mayte. IMPRESSION: Lung RAD: 2 - Benign. Recommendation: Continue annual screening in 12 Months with LDCT Non-Lung Significant Findings: Mass - Other (specify). 1.4 cm increased density left breast mass. Fur ther evaluation left breast diagnostic mammogram and targeted left breast ultrasound is recommended. Reviewed by: Blessing Cage MD on 05/29/2023 9:44 AM PDT Approved by: Blessing Cage MD on 05/29/2023 9:44 AM PDT Station ID: [id number]
== END 2023-05-28 13:09 | disposition home or self-care (01) ==
LOC: DI 13:08
PROVIDERS: ATTEND Registered Nurse
DX: Z12.2 Encounter for screening for malignant neoplasm of respiratory organs (principal); Z78.0 Asymptomatic menopausal state; Z87.891 Personal history of nicotine dependence; M81.0 Age-related osteoporosis without current pathological fracture; R91.8 Other nonspecific abnormal finding of lung field; J98.4 Other disorders of lung; I51.7 Cardiomegaly; I25.10 Atherosclerotic heart disease of native coronary artery without angina pectoris; N63.20 Unspecified lump in the left breast, unspecified quadrant; Z98.1 Arthrodesis status; Z90.49 Acquired absence of other specified parts of digestive tract

== ENCOUNTER 2023-06-11 12:42 | Outpatient (CLI) | payer MEDICARE, OTHER ==
--- NOTE | 2023-06-12 09:47 | Mammography Report ---
UNILATERAL LEFT DIGITAL DIAGNOSTIC MAMMOGRAM 3D/2D: 06/11/2023 CLINICAL: Additional evaluation requested from prior CT study. Comparison is made to exams dated: 04/03/2023 mammogram, 05/03/2021 mammogram, 04/20/2020 mammogram, mammogram, and 07/29/2017 mammogram - [facility]. The left breast is heterogeneously dense, which may obscure small masses (category c / 51-75% glandul ar tissue). There is a possible 1 cm oval equal density focal asymmetry in the left breast at 4 o'clock posterior depth. This is more prominent. This possibly correlates with described mass in the lateral aspect of the left breast on comparison chest CT dated 05/28/2023. No other significant masses or calcifications are seen in the breast. IMPRESSION: INCOMPLETE: NEEDS ADDITIONAL IMAGING EVALUATION The possible 1 cm oval equal density focal asymmetry in the left breast is indeterminate. An ultraso und is recommended for further evaluation and is scheduled to immediately follow this examination. Based on the Tyrer Cuzick model (a risk assessment model) the patients lifetime risk is 5.6% and her 10 year risk is 1.6%. According to the ACR, ACS, and NCCN guidelines, an annual breast MRI exam alejandro g with mammogram is recommended if the patients lifetime risk is 20% or greater. This exam was interpreted at Station ID: [id number]. NOTE: For mammograms, a report in lay terms will be sent to the patient. Approximately 15% of breast malignancies will not be visualized mammographically. In the management of a palpable breast mass, a negative mammogram must not discourage biopsy of a clinically suspicious lesion. Electronically Signed By: Dejon Minaya M.D. aty/:06/11/2023 13:49:03 ACR BI-RADS Category 0: Incomplete 3340F PARENCHYMAL PATTERN: (D) - The breast(s) demonstrate(s) heterogeneously dense fibroglandular parenchy ma. BI-RADS CATEGORY: (0) - 0 Ultrasound [id number] Immediate follow-up LATERALITY: (L)
--- NOTE | 2023-06-12 09:48 | Ultrasound Report ---
LIMITED ULTRASOUND OF LEFT BREAST: 06/11/2023 CLINICAL: Additional evaluation requested from prior CT study. Comparison is made to exams dated: 06/11/2023 mammogram, 04/03/2023 mammogram, 05/03/2021 mammogram, 04/06 mammogram, 08/06/2018 mammogram, and 07/29/2017 mammogram - [facility]. Color flow ultrasound of the left breast 2-4 o'clock region was performed. Aparicio scale images of the real-time examination were reviewed. No significant abnormalities were seen sonographically in the left breast. IMPRESSION: PROBABLY BENIGN There is no abnormality seen in the left breast to correspond with the possible mammographic focal as ymmetry which likely represents normal fibroglandular tissue. No mammographic or sonographic abnorma lities seen in the lateral left breast posterior depth to correlate with reported CT finding from [facility] CT dated 05/28/2023. This is a probably benign finding. A follow-up left mammogram with possible left ultrasound in 6 months is recommended to demonstrate st ability. Findings and recommendations were conveyed to the patient during today's evaluation. This exam was interpreted at Station ID: [id number]. Electronically Signed By: Dejon Minaya M.D. aty/:06/11/2023 16:16:51 Ultrasound BI-RADS: 3 Probably benign BI-RADS CATEGORY: (3) - 3 Mammo and [place] [id number] 6 month follow-up LATERALITY: (L)
== END 2023-06-11 12:43 | disposition home or self-care (01) ==
LOC: DI 12:42
PROVIDERS: ATTEND Registered Nurse
DX: R92.8 Other abnormal and inconclusive findings on diagnostic imaging of breast (principal); N63.23 Unspecified lump in the left breast, lower outer quadrant

== ENCOUNTER 2023-07-18 14:15 | Outpatient (CLI) | payer MEDICARE, OTHER ==
[2023-07-18 15:21] LABS: BASOPHILS # (AUTO) 0.1 10^3/uL (0.0-0.1); BASOPHILS % (AUTO) 1.1 %; EOSINOPHILS % (AUTO) 0.2 %; HCT - HEMATOCRIT 29.6 % (37.0-47.0); HGB - HEMOGLOBIN 8.6 g/dL (12.0-16.0); LYMPHOCYTES # (AUTO) 3.1 10^3/uL (1.5-3.5); LYMPHOCYTES % (AUTO) 29.6 %; MEAN CORPUSCULAR HEMOGLOBIN 22.6 pg (27.0-31.0); MEAN CORPUSCULAR HGB CONC 29.1 g/dL (32.0-36.0); MEAN CORPUSCULAR VOLUME 77.9 fL (81.0-99.0); MEAN PLATELET VOLUME 10.5 fL (7.9-10.8); MONOCYTES # (AUTO) 0.4 10^3/uL (0.0-1.0); MONOCYTES % (AUTO) 4.3 %; NEUTROPHILS # (AUTO) 6.7 10^3/uL (1.5-6.6); NEUTROPHILS % (AUTO) 64.5 %; PLT - PLATELET COUNT 462 10^3/uL (130-450); RED CELL DISTRIBUTION WIDTH 16.8 % (12.0-15.0); WHITE BLOOD COUNT 10.3 x10^3/uL (4.8-10.8)
[2023-07-18 16:20] LABS: THYROID STIMULATING HORMONE 0.9 uIU/mL (0.34-5.60)
[2023-07-18 16:26] LABS: ALBUMIN/GLOBULIN RATIO 1.4 (1.0-2.2); BILIRUBIN,TOTAL 0.3 mg/dL (0.2-1.0); CALCIUM 9.2 mg/dL (8.5-10.3); CREATININE 0.6 mg/dL (0.6-1.3); FERRITIN 3.9 ng/mL (11.0-306.8); TOTAL PROTEIN 6.8 g/dL (6.4-8.9)
== END 2023-07-18 14:16 | disposition home or self-care (01) ==
LOC: LAB 14:15
PROVIDERS: ATTEND Registered Nurse
DX: E53.8 Deficiency of other specified B group vitamins (principal); E51.9 Thiamine deficiency, unspecified; Z13.228 Encounter for screening for other metabolic disorders; Z13.220 Encounter for screening for lipoid disorders; Z13.29 Encounter for screening for other suspected endocrine disorder; Z13.0 Encounter for screening for diseases of the blood and blood-forming organs and certain disorders involving the immune mechanism; Z79.890 Hormone replacement therapy; Z86.2 Personal history of diseases of the blood and blood-forming organs and certain disorders involving the immune mechanism
CPT/HCPCS: 36415; 80053; 80061; 82607; 82670; 82728; 83721; 84425; 84443; 85025

== ENCOUNTER 2023-07-30 08:22 | Outpatient (CLI) | payer MEDICARE, OTHER | END 2023-07-30 08:23 | disposition home or self-care (01) | LOC: DI 08:22 | PROVIDERS: ATTEND Obstetrics & Gynecology | DX: Z53.9 Procedure and treatment not carried out, unspecified reason (principal) ==

== ENCOUNTER 2023-11-13 12:53 | Outpatient (CLI) | payer MEDICARE, OTHER ==
[2023-11-13 13:18] LABS: BASOPHILS # (AUTO) 0.1 10^3/uL (0.0-0.1); BASOPHILS % (AUTO) 1.1 %; EOSINOPHILS % (AUTO) 0.3 %; HCT - HEMATOCRIT 37.4 % (37.0-47.0); HGB - HEMOGLOBIN 11.3 g/dL (12.0-16.0); LYMPHOCYTES # (AUTO) 1.9 10^3/uL (1.5-3.5); LYMPHOCYTES % (AUTO) 29.5 %; MEAN CORPUSCULAR HEMOGLOBIN 24.5 pg (27.0-31.0); MEAN CORPUSCULAR HGB CONC 30.2 g/dL (32.0-36.0); MEAN PLATELET VOLUME 11.4 fL (7.9-10.8); MONOCYTES # (AUTO) 0.3 10^3/uL (0.0-1.0); MONOCYTES % (AUTO) 5.2 %; NEUTROPHILS % (AUTO) 63.7 %; PLT - PLATELET COUNT 350 10^3/uL (130-450); RED BLOOD COUNT 4.62 10^6/uL (4.20-5.40); WHITE BLOOD COUNT 6.3 x10^3/uL (4.8-10.8)
[2023-11-13 13:31] LABS: PARTIAL THROMBOPLASTIN TIME 35.1 secs (24.9-33.3)
[2023-11-13 13:35] LABS: PT - PROTHROMBIN TIME 10.8 secs (9.9-12.6)
[2023-11-13 13:40] LABS: RBC MORPHOLOGY (MULTIPLE) DIMORPHIC RBCS (NORMAL); SLIDE REVIEW? Indicated
[2023-11-13 13:55] LABS: FERRITIN 12.8 ng/mL (11.0-306.8)
[2023-11-13 21:16] LABS: ESTIMATED AVERAGE GLUCOSE 88 mg/dL (70-100); HEMOGLOBIN A1c% 4.7 % (4.27-6.07)
== END 2023-11-13 12:54 | disposition home or self-care (01) ==
LOC: LAB 12:53
PROVIDERS: ATTEND Internal Medicine
DX: Z01.812 Encounter for preprocedural laboratory examination (principal); D50.9 Iron deficiency anemia, unspecified
CPT/HCPCS: 36415; 82728; 83036; 83540; 84466; 85025; 85610; 85730

== ENCOUNTER 2024-01-07 10:52 | Outpatient (CLI) | payer MEDICARE, OTHER ==
--- NOTE | 2024-01-08 10:09 | Mammography Report ---
BILATERAL DIGITAL DIAGNOSTIC MAMMOGRAM 3D/2D WITH CLEAVAGE LATEROMEDIAL: 01/07/2024 CLINICAL: Patient returns for a 6 month follow up of the left breast, due for bilateral exam. Tendern ess in left breast. Comparison is made to exams dated: 06/11/2023 mammogram, 04/03/2023 mammogram, 05/03/2021 mammogram, 04/06 mammogram, and 06/11/2023 ultrasound - [facility]. Both breasts are heterogeneously dense, which may obscure small masses (category c / 51-75% glandular tissue). The possible oval equal density focal asymmetry in the left breast at 4 o'clock posterior depth is no t reproduced and presumably represented superimposed breast tissue. No other significant masses, calcifications, or other findings are seen in either breast. IMPRESSION: INCOMPLETE: NEEDS ADDITIONAL IMAGING EVALUATION An ultrasound is recommended to confirm the no longer seen oval equal density focal asymmetry in the left breast posterior depth. There is no abnormality seen in the left breast to correspond with the tenderness, however, ultrasoun d is recommended. Based on the Tyrer Cuzick model (a risk assessment model) the patient's lifetime risk is 5.5% and her 10 year risk is 1.7%. According to the ACR, ACS, and NCCN guidelines, an annual breast MRI exam alejandro g with mammogram is recommended if the patient's lifetime risk is 20% or greater. This exam was interpreted at Station ID: [id number]. NOTE: For mammograms, a report in lay terms will be sent to the patient. Approximately 15% of breast malignancies will not be visualized mammographically. In the management of a palpable breast mass, a negative mammogram must not discourage biopsy of a clinically suspicious lesion. Electronically Signed By: Lacho iyer/jah:01/07/2024 16:34:34 ACR BI-RADS Category 0: Incomplete 3340F PARENCHYMAL PATTERN: (D) - The breast(s) demonstrate(s) heterogeneously dense fibroglandular parenchy ma. BI-RADS CATEGORY: (0) - 0 Ultrasound [id number] Immediate follow-up LATERALITY: (L)
--- NOTE | 2024-01-08 10:10 | Ultrasound Report ---
LIMITED ULTRASOUND OF LEFT BREAST: 01/07/2024 CLINICAL: Occasional left breast pain. Comparison is made to exams dated: 01/07/2024 mammogram, 06/11/2023 ultrasound, 06/11/2023 mammogram, 04/03 mammogram, 05/03/2021 mammogram, and 04/20/2020 mammogram - [facility]. Color flow and real-time ultrasound of the left breast 2 o'clock region were performed. Aparicio scale images of the real-time examination were reviewed. No significant abnormalities were seen sonographically in the left breast. IMPRESSION: NEGATIVE There is no sonographic evidence of malignancy. There is no abnormality seen in the left breast to correspond with the palpable abnormality and pain in the lateral aspect, however, clinical followup is recommended. There is no abnormality seen in th e left breast to correspond with the mammography finding at 2 o'clock. Return to annual mammogram screening schedule is recommended. This exam was interpreted at Station ID: [id number]. Electronically Signed By: Lacho iyer/jah:01/07/2024 16:36:00 Ultrasound BI-RADS: 1 Negative BI-RADS CATEGORY: (1) - 1 Mammogram [id number] return to screening LATERALITY: (B)
== END 2024-01-07 10:53 | disposition home or self-care (01) ==
LOC: DI 10:52
PROVIDERS: ATTEND Registered Nurse
DX: N63.23 Unspecified lump in the left breast, lower outer quadrant (principal); N64.4 Mastodynia; R92.333 Mammographic heterogeneous density, bilateral breasts

== ENCOUNTER 2024-01-07 10:53 | Outpatient (CLI) | payer MEDICARE, OTHER ==
[2024-01-07 12:24] LABS: BASOPHILS # (AUTO) 0.1 10^3/uL (0.0-0.1); BASOPHILS % (AUTO) 0.5 %; EOSINOPHILS % (AUTO) 0.3 %; HCT - HEMATOCRIT 38.8 % (37.0-47.0); HGB - HEMOGLOBIN 11.9 g/dL (12.0-16.0); LYMPHOCYTES # (AUTO) 2.3 10^3/uL (1.5-3.5); LYMPHOCYTES % (AUTO) 21.5 %; MEAN CORPUSCULAR HEMOGLOBIN 27.5 pg (27.0-31.0); MEAN CORPUSCULAR HGB CONC 30.7 g/dL (32.0-36.0); MEAN CORPUSCULAR VOLUME 89.8 fL (81.0-99.0); MEAN PLATELET VOLUME 10.7 fL (7.9-10.8); MONOCYTES # (AUTO) 0.4 10^3/uL (0.0-1.0); NEUTROPHILS # (AUTO) 7.9 10^3/uL (1.5-6.6); NEUTROPHILS % (AUTO) 73.5 %; PLT - PLATELET COUNT 295 10^3/uL (130-450); RED BLOOD COUNT 4.32 10^6/uL (4.20-5.40); RED CELL DISTRIBUTION WIDTH 21.2 % (12.0-15.0); WHITE BLOOD COUNT 10.8 x10^3/uL (4.8-10.8)
[2024-01-07 12:32] LABS: RBC MORPHOLOGY (MULTIPLE) 4+ ANISOCYTOSIS (NORMAL); SLIDE REVIEW? Indicated
[2024-01-07 12:42] LABS: ALBUMIN 4.3 g/dL (3.2-5.5); ALBUMIN/GLOBULIN RATIO 1.7 (1.0-2.2); BILIRUBIN,TOTAL 0.3 mg/dL (0.2-1.0); CALCIUM 9.6 mg/dL (8.5-10.3); CREATININE 0.7 mg/dL (0.6-1.3); POTASSIUM 4.3 mmol/L (3.5-4.5); TOTAL PROTEIN 6.8 g/dL (6.4-8.9)
[2024-01-07 12:50] LABS: THYROID STIMULATING HORMONE 1.19 uIU/mL (0.34-5.60)
[2024-01-07 12:52] LABS: ESTIMATED AVERAGE GLUCOSE 100 mg/dL (70-100); HEMOGLOBIN A1c% 5.1 % (4.27-6.07)
[2024-01-07 12:57] LABS: FERRITIN 164.5 ng/mL (11.0-306.8)
[2024-01-07 13:01] LABS: PT - PROTHROMBIN TIME 11.5 secs (9.9-12.6)
[2024-01-07 13:08] LABS: PARTIAL THROMBOPLASTIN TIME 36.6 secs (24.9-33.3)
--- NOTE | 2024-01-07 14:35 | CT Report ---
PROCEDURE: Thoracic Spine WO INDICATIONS: NECK PAIN, HARDWARE FAILURE TECHNIQUE: Noncontrast 3 mm thick sections acquired through the region of interest in the thoracic spine. Sagit ronan and coronal reformats were then constructed. For radiation dose reduction, the following was used : automated exposure control, adjustment of mA and/or kV according to patient size. COMPARISON: CT thoracic spine 03/10/2022 FINDINGS: Image quality: Excellent. Bones: There is normal overall bony alignment. Mild levocurvature of the thoracic spine. Partially v isualized anterior cervical discectomy and fusion of the lower cervical spine. Posterior fusion of th e cervicothoracic spine extending through T3. The more superior aspect is not seen. The hardware appe ars intact without strain fracture lucency. Posterior spinal fusion of the thoracolumbar spine extend ing from T9 to the lumbar spine and out of the field of view inferiorly. The hardware appears intact without strain fracture lucency. Redemonstration of degenerative changes of the thoracic spine, most pronounced at the unfused levels and most severe at T8-T9 with moderate disc height loss and vacuum d isc phenomenon, overall similar appearance compared to prior. No significant central canal stenosis. Mild bilateral neuroforaminal stenosis at T8-T9. Mild neuroforaminal stenosis on the right from T4 T5 -T7 T8, similar appearance to prior. No acute vertebral body compression fractures. No suspicious sc lerotic or lytic bony lesions. Soft tissues: No paravertebral masses or hematomas. Visualized posteromedial lungs appear clear. C holecystectomy clips. Partially visualized gastric bypass. Atherosclerotic vascular calcifications. IMPRESSION: 1.Redemonstration of cervicothoracic and thoracolumbar hardware without evidence of hardware complica tion. 2.Multilevel degenerative changes of the thoracic spine, worse at the nonfused levels with mild neuro foraminal stenosis as above. No significant central canal stenosis. No significant change compared to prior exam. Reviewed by: Azar Ha MD on 01/07/2024 2:34 PM PDT Approved by: Azar Ha MD on 01/07/2024 2:34 PM PDT Station ID: [id number]
--- NOTE | 2024-01-07 16:34 | CT Report ---
PROCEDURE: Cervical Spine WO INDICATIONS: NECK PAIN, HARDWARE FAILURE TECHNIQUE: Noncontrast 3 mm thick sections acquired from the skull base to the T4 level. Sagittal and coronal r eformats were then constructed. For radiation dose reduction, the following was used: automated exp osure control, adjustment of mA and/or kV according to patient size. COMPARISON: 10/11/2021. FINDINGS: Image quality: Excellent. Bones: No fractures or dislocations. C1-T3 posterior spinal fixation. C4-C7 ACDF. The inferior screw s of the C7 ACDF at the inferior aspect of the vertebral body with some extension into the disc and a ppears mildly retracted endplate sits approximately 3 mm away from the anterior aspect of the vertebr al body. The hardware otherwise appears intact without surrounding fracture or lucency. Multilevel fa cet arthropathy. No central canal stenosis. No significant osseous neuroforaminal stenosis. Visualize d superior ribs are intact. Soft tissues: Prevertebral soft tissues are normal in thickness. No paravertebral hematomas. No ap ical pneumothoraces. IMPRESSION: 1.Multilevel cervical fixation. The inferior ACDF plate is approximately 3 mm from the anterior aspec t of the vertebral body. Otherwise, no evidence of hardware complication. 2.No significant central canal or neuroforaminal stenosis. Reviewed by: Azar Ha MD on 01/07/2024 4:32 PM PDT Approved by: Azar Ha MD on 01/07/2024 4:32 PM PDT Station ID: [id number]
== END 2024-01-07 10:54 | disposition home or self-care (01) ==
LOC: DI 10:53
PROVIDERS: ATTEND Orthopaedic Surgery
DX: Z01.818 Encounter for other preprocedural examination (principal); T84.216A Breakdown (mechanical) of internal fixation device of vertebrae, initial encounter; M54.2 Cervicalgia; E55.9 Vitamin D deficiency, unspecified; D50.9 Iron deficiency anemia, unspecified; Z98.84 Bariatric surgery status; E03.9 Hypothyroidism, unspecified; Z98.1 Arthrodesis status
CPT/HCPCS: 36415; 80053; 82306; 82728; 83036; 83540; 84443; 84466; 84481; 85025; 85610; 85730

== ENCOUNTER 2024-02-11 12:02 | Outpatient (CLI) | payer MEDICARE, OTHER ==
[2024-02-11 12:33] LABS: BASOPHILS # (AUTO) 0.1 10^3/uL (0.0-0.1); BASOPHILS % (AUTO) 0.7 %; EOSINOPHILS # (AUTO) 0.1 10^3/uL (0.0-0.7); EOSINOPHILS % (AUTO) 0.5 %; HCT - HEMATOCRIT 34.4 % (37.0-47.0); HGB - HEMOGLOBIN 10.8 g/dL (12.0-16.0); LYMPHOCYTES # (AUTO) 2.6 10^3/uL (1.5-3.5); LYMPHOCYTES % (AUTO) 28.2 %; MEAN CORPUSCULAR HEMOGLOBIN 29.3 pg (27.0-31.0); MEAN CORPUSCULAR HGB CONC 31.4 g/dL (32.0-36.0); MEAN CORPUSCULAR VOLUME 93.5 fL (81.0-99.0); MEAN PLATELET VOLUME 10.8 fL (7.9-10.8); MONOCYTES # (AUTO) 0.5 10^3/uL (0.0-1.0); MONOCYTES % (AUTO) 4.9 %; NEUTROPHILS % (AUTO) 65.6 %; RED BLOOD COUNT 3.68 10^6/uL (4.20-5.40); WHITE BLOOD COUNT 9.2 x10^3/uL (4.8-10.8)
[2024-02-11 12:44] LABS: PLATELET MORPHOLOGY PLATELET CLUMPING (NORMAL); SLIDE REVIEW? Indicated
[2024-02-11 12:45] LABS: PLATELET ESTIMATE, MANUAL NORMAL (130-450,000) (NORMAL)
[2024-02-11 12:51] LABS: CALCIUM 9.4 mg/dL (8.5-10.3); CREATININE 0.6 mg/dL (0.6-1.3); POTASSIUM 4.2 mmol/L (3.5-4.5)
[2024-02-11 13:05] LABS: FERRITIN 154.1 ng/mL (11.0-306.8)
== END 2024-02-11 12:03 | disposition home or self-care (01) ==
LOC: LAB 12:02
PROVIDERS: ATTEND Internal Medicine
DX: Z01.818 Encounter for other preprocedural examination (principal); D50.9 Iron deficiency anemia, unspecified; T85.848D Pain due to other internal prosthetic devices, implants and grafts, subsequent encounter; S12.9XXS Fracture of neck, unspecified, sequela
CPT/HCPCS: 36415; 80048; 82728; 83540; 84466; 85025

== ENCOUNTER 2024-04-04 11:32 | Outpatient (CLI) | payer MEDICARE, OTHER ==
--- NOTE | 2024-04-05 06:36 | Ultrasound Report ---
PROCEDURE: Carotid Doppler Complete INDICATIONS: HIST OF SMOKING TECHNIQUE: Color and pulse Doppler interrogation was performed of both carotid systems, with image documentation and velocity measurements. COMPARISON: None. FINDINGS: Right side: Brachial blood pressure: 105/63 mm Hg. Common carotid artery peak systolic velocity: 59 cm/sec. Internal carotid artery peak systolic velocity: 90 cm/sec. Internal carotid artery end diastolic velocity: 45 cm/sec. External carotid artery peak systolic velocity: 61 cm/sec. ICA/CCA peak systolic ratio: 0.5 . Aparicio scale imaging description: Mild atherosclerotic plaque. Percent internal carotid artery stenosis: Less than 50 percent stenosis. Vertebral artery: Flow direction is antegrade. Left side: Brachial blood pressure: 98/65 mm Hg. Common carotid artery peak systolic velocity: 61 cm/sec. Internal carotid artery peak systolic velocity: 91 cm/sec. Internal carotid artery end diastolic velocity: 45 cm/sec. External carotid artery peak systolic velocity: 99 cm/sec. ICA/CCA peak systolic ratio: 1.4 . Aparicio scale imaging description: Mild atherosclerotic plaque. Percent internal carotid artery stenosis: Less than 50 percent stenosis. Vertebral artery: Flow direction is antegrade. IMPRESSION: 1. In the right internal carotid artery, there is less than 50 percent stenosis based on peak systoli c velocity criteria. 2. In the left internal carotid artery, there is less than 50 percent stenosis based on peak systolic velocity criteria. 3. Antegrade blood flow within the right vertebral artery. 4. Antegrade blood flow within the left vertebral artery. The estimate of stenosis included in the report of the imaging study was calculated using the [facility]-end orsed standards of carotid artery stenosis. Reviewed by: Alexandre Bradley MD on 04/05/2024 6:35 AM PDT Approved by: Alexandre Bradley MD on 04/05/2024 6:35 AM PDT Station ID: [id number]
--- NOTE | 2024-04-05 06:47 | Ultrasound Report ---
PROCEDURE: Aorta Screening INDICATIONS: Personal History of Smoking TECHNIQUE: Real time scanning was performed of the aorta and iliac arteries, with image documentatio n. COMPARISON: None. FINDINGS: Aorta: Proximal aortic diameter measures 1.9 x 1.6 cm. Mid-aorta measures 1.5 x 1.5 cm. Distal aor tic diameter is 1.3 x 1.4 cm. Iliac arteries: Right common iliac artery measures 1 cm. Left common iliac artery measures 1.1 cm. IMPRESSION: No aortic aneurysm. Recommended intervals for follow-up imaging of ectatic aortas and abdominal aortic aneurysms, per ACR consensus guidelines: 2.5-2.9 cm: 5 years 3.0-3.4 cm: 3 years 3.5-3.9 cm: 2 years 4.0-4.4 cm: 1 year 4.5-4.9 cm: 6 months + endovascular referral 5.0-5.5 cm: 3-6 months + endovascular referral Reviewed by: Alexandre Bradley MD on 04/05/2024 6:46 AM PDT Approved by: Alexandre Bradley MD on 04/05/2024 6:46 AM PDT Station ID: [id number]
--- NOTE | 2024-04-05 06:48 | Ultrasound Report ---
PROCEDURE: Ankle Brachial Index INDICATIONS: Personal history of smoking TECHNIQUE: Ankle-brachial indices were obtained bilaterally and recorded. COMPARISONS: None. FINDINGS: Right ankle brachial index (JOSELIN): 1.0 Left ankle brachial index (JOSELIN): 1.0 Waveforms are triphasic and velocities are within normal limits. Healing potential: Ankle pressures >55 mm Hg in non-diabetics and >80 mm Hg in diabetics are likely to achieve primary h ealing of ischemic foot ulcers. Toe pressures >30 mm Hg are likely to achieve primary healing of ischemic foot ulcers, toe or transme tatarsal amputations. IMPRESSION: Normal ankle brachial index. Triphasic waveforms of the calf arteries. Reviewed by: Alexandre Bradley MD on 04/05/2024 6:47 AM PDT Approved by: Alexandre Bradley MD on 04/05/2024 6:47 AM PDT Station ID: [id number]
== END 2024-04-04 11:33 | disposition home or self-care (01) ==
LOC: DI 11:32
PROVIDERS: ATTEND Internal Medicine
DX: Z13.6 Encounter for screening for cardiovascular disorders (principal); Z87.891 Personal history of nicotine dependence; I65.23 Occlusion and stenosis of bilateral carotid arteries
CPT/HCPCS: 93880; 93922

== ENCOUNTER 2024-07-03 12:02 | Outpatient (CLI) | payer MEDICARE, OTHER ==
[2024-07-03 12:54] LABS: BASOPHILS # (AUTO) 0.1 10^3/uL (0.0-0.1); BASOPHILS % (AUTO) 0.8 %; EOSINOPHILS # (AUTO) 0.1 10^3/uL (0.0-0.7); EOSINOPHILS % (AUTO) 0.7 %; HCT - HEMATOCRIT 37.5 % (37.0-47.0); HGB - HEMOGLOBIN 12.2 g/dL (12.0-16.0); LYMPHOCYTES # (AUTO) 3.4 10^3/uL (1.5-3.5); LYMPHOCYTES % (AUTO) 35.3 %; MEAN CORPUSCULAR HGB CONC 32.5 g/dL (32.0-36.0); MEAN CORPUSCULAR VOLUME 95.2 fL (81.0-99.0); MEAN PLATELET VOLUME 10.5 fL (7.9-10.8); MONOCYTES # (AUTO) 0.6 10^3/uL (0.0-1.0); MONOCYTES % (AUTO) 5.8 %; NEUTROPHILS # (AUTO) 5.4 10^3/uL (1.5-6.6); NEUTROPHILS % (AUTO) 57.2 %; PLT - PLATELET COUNT 274 10^3/uL (130-450); RED BLOOD COUNT 3.94 10^6/uL (4.20-5.40); RED CELL DISTRIBUTION WIDTH 13.2 % (12.0-15.0); WHITE BLOOD COUNT 9.5 x10^3/uL (4.8-10.8)
[2024-07-03 13:02] LABS: CALCIUM, IONIZED 1.17 mmol/L (1.15-1.33); VBG PH 7.308 (7.31-7.41)
[2024-07-03 13:24] LABS: THYROID STIMULATING HORMONE 1.02 uIU/mL (0.34-5.60)
[2024-07-03 13:29] LABS: FERRITIN 249.4 ng/mL (11.0-306.8)
--- NOTE | 2024-07-05 03:06 | CT Report ---
PROCEDURE: Lung Cancer Screen INDICATIONS: HIST OF SMOKING TECHNIQUE: A CT scan of the chest was performed. Intravenous contrast media was not administered. Images were re corded and evaluated at appropriate window settings. Reformats: axial MIP of the chest, coronal and s agittal. For radiation dose reduction, the following was used: automated exposure control, adjustment of mA and/or kV according to patient size. COMPARISON: 08/06/2021. 05/28/2023 FINDINGS: Image quality: Diagnostic. Beam hardening artifacts are noted from spinal fixation hardware. Prior cancer history: Unsure. Lungs and pleura: No pleural effusions. No pneumothorax. 5 mm subpleural nodule again noted in bilateral middle lobe series 4 image [address] udy. Calcified granuloma is again seen in left upper lobe series 4 image 24. The previously described tiny 2 to 3 mm nodule in right lower lobe is not definitely seen on the curr ent study. Previously described 2 to 3 mm left upper lobe nodules are partially visualized series 4 images 40 an d 41. No new pulmonary nodule is seen. Mediastinum: Heart size is normal. No pericardial effusion. No large vessel abnormality. No mediastin al adenopathy by size criteria. Chest wall and lower neck: Thyroid is unremarkable. No axillary or supraclavicular adenopathy by size . Previously described lateral left breast mass is not included on the current study. Bones: No aggressive osseous abnormality. Extensive fusion of cervical spine, lower thoracic and lumb ar spine is seen. Upper Abdomen: Unremarkable. IMPRESSION: Lung RAD: 2 - Benign. Recommendation: Continue annual screening in 12 Months with LDCT Non-Lung Significant Findings: Mass - Other (specify). Previously described 1.4 cm increased density left breast mass is not included on the current study, suggest clinical correlation. Reviewed by: Kirk Syed MD on 07/05/2024 3:05 AM PDT Approved by: Kirk Syed MD on 07/05/2024 3:05 AM PDT Station ID: [id number]
== END 2024-07-03 12:03 | disposition home or self-care (01) ==
LOC: DI 12:02
PROVIDERS: ATTEND Internal Medicine
DX: Z12.2 Encounter for screening for malignant neoplasm of respiratory organs (principal); E03.9 Hypothyroidism, unspecified; E55.9 Vitamin D deficiency, unspecified; Z87.891 Personal history of nicotine dependence; Z98.84 Bariatric surgery status; Z86.2 Personal history of diseases of the blood and blood-forming organs and certain disorders involving the immune mechanism
CPT/HCPCS: 36415; 82306; 82330; 82728; 83540; 83970; 84443; 84466; 85025